=== PATIENT | male | born 1965 | race Caucasian/White ===

== ENCOUNTER 2018-11-26 09:47 | Day surgery (SDC) | payer MEDICARE, OTHER ==
[~2018-11-26] VITALS: Ht 177.8 cm; Wt 94.1 kg
[~2018-11-26 09:47] MED LIST: CLON2 PO; HYDACE5 PO; IBUP800 PO; LAMO100 PO; OLAN10 PO; OMEP20ER PO; RXHYDACE PO; VIIBRYD40 MG PO
== END 2018-11-26 12:20 | disposition home or self-care (01) ==
LOC: ORSCSDS 09:47
PROVIDERS: Internal Medicine Gastroenterology
PROC: 0DJ08ZZ Inspection of Upper Intestinal Tract, Via Natural or Artificial Opening Endoscopic (ICD-10-PCS; principal; 2018-11-26 11:30)
PROC: 0DBL8ZX Excision of Transverse Colon, Via Natural or Artificial Opening Endoscopic, Diagnostic (ICD-10-PCS; principal; 2018-11-26 11:30)
PROC: 0DBK8ZX Excision of Ascending Colon, Via Natural or Artificial Opening Endoscopic, Diagnostic (ICD-10-PCS; principal; 2018-11-26 11:30)
DX: Z12.11 Encounter for screening for malignant neoplasm of colon (principal); Z86.010 Personal history of colon polyps; D12.2 Benign neoplasm of ascending colon; D12.3 Benign neoplasm of transverse colon; K57.30 Diverticulosis of large intestine without perforation or abscess without bleeding; K64.8 Other hemorrhoids; Z80.0 Family history of malignant neoplasm of digestive organs; K21.0 Gastro-esophageal reflux disease with esophagitis; I10 Essential (primary) hypertension; F31.9 Bipolar disorder, unspecified; K44.9 Diaphragmatic hernia without obstruction or gangrene; Z86.19 Personal history of other infectious and parasitic diseases; F17.210 Nicotine dependence, cigarettes, uncomplicated; E66.9 Obesity, unspecified; Z68.31 Body mass index [BMI] 31.0-31.9, adult; Z79.899 Other long term (current) drug therapy
CPT/HCPCS: 88305; J7120

== ENCOUNTER 2022-02-06 02:18 | Emergency (ER) | payer OTHER ==
[~2022-02-06] VITALS: Ht 177.8 cm; Wt 95.2 kg
[2022-02-06] MEDS ORDERED: TRAM50 PO (03:30)
== END 2022-02-06 04:30 | disposition home or self-care (01) ==
LOC: ER 02:18
DX: K40.90 Unilateral inguinal hernia, without obstruction or gangrene, not specified as recurrent (principal); Z79.899 Other long term (current) drug therapy
CPT/HCPCS: 73502; 96372; 99283-25; A9270; J1885

== ENCOUNTER 2024-06-10 03:07 | Day surgery (SDC) | payer OTHER ==
[~2024-06-10 03:07] MED LIST changes: +ALBU90OI INH; +CefTRIAXone Sodium 2,000 MG in NS 100 ML IV SCH; +ESCI10 PO; +Lamictal200 MG PO; +MIRALAX17 GM PO; -OLAN10 PO; +OLAN20 MM; +OLANZAPINE20 M2 PO; +Percocet 5-3251 EACH PO; +TESTOSTERONE75 G1 TOP; +TRAM50 PO
[2024-06-10] MEDS ORDERED: NS IV SCH (06:00)
[2024-06-10] MEDS ORDERED: DAPTOMYCIN IV SCH (06:00)
[2024-06-10 07:47] VITALS: BP 166/95
[2024-06-10] MEDS ORDERED: TRAM50 PO (08:27)
[2024-06-10 08:53] LABS: BASOPHILS ABSOLUTE AUTO 0.04 K/mm3 (0.00-0.23); BASOPHILS PERCENT AUTO 1 % (0-2); EOSINOPHILS ABSOLUTE AUTO 0.12 K/mm3 (0.00-0.68); EOSINOPHILS PERCENT AUTO 2 % (0-6); Hemoglobin 8.7 g/dL (13.5-17.5); IMMATURE GRAN ABSOLUTE AUTO 0.04 K/mm3 (0.00-0.10); IMMATURE GRAN PERCENT AUTO 1 % (0-1); LYMPHOCYTES ABSOLUTE AUTO 1.94 K/mm3 (0.84-5.20); LYMPHOCYTES PERCENT AUTO 25 % (21-46); MONOCYTES ABSOLUTE AUTO 0.54 K/mm3 (0.16-1.47); MONOCYTES PERCENT AUTO 7 % (4-13); Mean Corpuscular HGB 24.2 pg (26.0-34.0); Mean Corpuscular Volume 81 fL (80-100); Mean Platelet Volume 9.3 fL (9.1-12.4); NEUTROPHILS PERCENT AUTO 66 % (41-73); Platelet Count 481 K/mm3 (150-400); RDW Coefficient Variation 22.2 % (11.7-14.2); White Blood Cell Count 7.88 K/mm3 (4.00-11.30)
[2024-06-10 09:23] LABS: Albumin, Blood 3.1 g/dL (3.4-5.0); Albumin/Globulin Ratio 0.7 (0.8-1.8); Bilirubin, Total 0.3 mg/dL (0.1-1.0); Bun/Creatinine Ratio 13.6 (12.0-20.0); C-REACTIVE PROTEIN, EXT RANGE 2.45 mg/dL (0.000-0.300); Calcium, Blood 8.7 mg/dL (8.5-10.1); Creatinine, Blood 0.73 mg/dL (0.60-1.20); Globulin, Blood 4.3 g/dL (2.2-4.0); Potassium, Blood 3.5 mmol/L (3.5-5.5); Total Protein, Blood 7.4 g/dL (6.4-8.2)
--- NOTE | 2024-06-10 10:18 | NUR ---
LABS SENT TO DR CALVIN
== END 2024-06-10 08:15 | disposition home or self-care (01) ==
LOC: ATC 03:07
PROVIDERS: Internal Medicine Infectious Disease
DX: M01.X Direct infection of joint in infectious and parasitic diseases classified elsewhere (principal)
CPT/HCPCS: 80053; 82550; 85025; 86140; 96365; 96368; J0696; J0878

== ENCOUNTER 2024-06-11 02:16 | Day surgery (SDC) | payer OTHER ==
[2024-06-11] MEDS ORDERED: DAPTOMYCIN IV SCH (06:00)
[2024-06-11] MEDS ORDERED: NS IV SCH (06:00)
[2024-06-11 10:33] VITALS: BP 157/87
[2024-06-12] MEDS ORDERED: CefTRIAXone Sodium 2,000 MG in NS 100 ML IV SCH (01:00)
[2024-06-12] MEDS ORDERED: NS IV SCH (06:00)
[2024-06-12] MEDS ORDERED: DAPTOMYCIN IV SCH (06:00)
[2024-06-12] MEDS ORDERED: CEFTRIAXONE2 G1 IV (11:35)
[2024-06-12] MEDS ORDERED: CUBICIN RF500 M1 IV (11:35)
== END 2024-06-11 10:56 | disposition home or self-care (01) ==
LOC: ATC 02:16
DX: M01.X Direct infection of joint in infectious and parasitic diseases classified elsewhere (principal)
CPT/HCPCS: 96365; 96368; J0696; J0878

== ENCOUNTER 2024-06-12 11:01 | Day surgery (SDC) | payer OTHER ==
[2024-06-12 10:45] VITALS: BP 154/100
[~2024-06-12 11:01] MED LIST changes: +DAPTOMYCIN IV SCH; +NS IV SCH
[2024-06-12] MEDS ORDERED: CEFTRIAXONE2 G1 IV (11:35)
[2024-06-12] MEDS ORDERED: CUBICIN RF500 M1 IV (11:35)
== END 2024-06-12 11:10 | disposition home or self-care (01) ==
LOC: ATC 11:01
DX: M01.X Direct infection of joint in infectious and parasitic diseases classified elsewhere (principal)
CPT/HCPCS: 96365; 96368; J0696; J0878

== ENCOUNTER 2024-06-13 01:06 | Day surgery (SDC) | payer OTHER ==
[~2024-06-13 01:06] MED LIST changes: +CEFTRIAXONE2 G1 IV; +CUBICIN RF500 M1 IV; -CefTRIAXone Sodium 2,000 MG in NS 100 ML IV SCH; -DAPTOMYCIN IV SCH; -NS IV SCH
[2024-06-13] MEDS ORDERED: NS IV SCH (06:00)
[2024-06-13] MEDS ORDERED: CefTRIAXone Sodium 2,000 MG in NS 100 ML IV SCH (06:00)
[2024-06-13] MEDS ORDERED: DAPTOMYCIN IV SCH (06:00)
[2024-06-13 10:30] VITALS: BP 126/76
== END 2024-06-13 10:56 | disposition home or self-care (01) ==
LOC: ATC 01:06
DX: M01.X Direct infection of joint in infectious and parasitic diseases classified elsewhere (principal)
CPT/HCPCS: 96365; 96368; J0696; J0878

== ENCOUNTER 2024-06-14 01:54 | Day surgery (SDC) | payer OTHER ==
[2024-06-14] MEDS ORDERED: CefTRIAXone Sodium 2,000 MG in NS 100 ML IV SCH (06:00)
[2024-06-14] MEDS ORDERED: DAPTOMYCIN IV SCH (06:00)
[2024-06-14] MEDS ORDERED: NS IV SCH (06:00)
[2024-06-14 10:11] VITALS: BP 109/88
== END 2024-06-14 10:42 | disposition home or self-care (01) ==
LOC: ATC 01:54
DX: M01.X Direct infection of joint in infectious and parasitic diseases classified elsewhere (principal)
CPT/HCPCS: 96365; 96368; J0696; J0878

== ENCOUNTER 2024-06-15 00:44 | Day surgery (SDC) | payer OTHER ==
[2024-06-15] MEDS ORDERED: DAPTOMYCIN IV SCH (06:00)
[2024-06-15] MEDS ORDERED: CefTRIAXone Sodium 2,000 MG in NS 100 ML IV SCH (06:00)
[2024-06-15] MEDS ORDERED: NS IV SCH (06:00)
[2024-06-15 09:56] VITALS: BP 141/78
== END 2024-06-15 10:25 | disposition home or self-care (01) ==
LOC: ATC 00:44
DX: M01.X Direct infection of joint in infectious and parasitic diseases classified elsewhere (principal)
CPT/HCPCS: 96365; 96368; J0696; J0878

== ENCOUNTER 2024-06-16 02:37 | Day surgery (SDC) | payer OTHER ==
[~2024-06-16 02:37] MED LIST changes: +CefTRIAXone Sodium 2,000 MG in NS 100 ML IV SCH
[2024-06-16] MEDS ORDERED: DAPTOMYCIN IV SCH (06:00)
[2024-06-16] MEDS ORDERED: NS IV SCH (06:00)
[2024-06-16 10:26] VITALS: BP 158/79
== END 2024-06-16 10:50 | disposition home or self-care (01) ==
LOC: ATC 02:37
DX: M01.X Direct infection of joint in infectious and parasitic diseases classified elsewhere (principal); Z87.891 Personal history of nicotine dependence
CPT/HCPCS: 96365; 96368; J0696; J0878

== ENCOUNTER 2024-06-17 01:20 | Day surgery (SDC) | payer OTHER ==
[~2024-06-17 01:20] MED LIST changes: -CefTRIAXone Sodium 2,000 MG in NS 100 ML IV SCH
[2024-06-17] MEDS ORDERED: CefTRIAXone Sodium 2,000 MG in NS 100 ML IV SCH (06:00)
[2024-06-17] MEDS ORDERED: DAPTOMYCIN IV SCH (06:00)
[2024-06-17] MEDS ORDERED: NS IV SCH (06:00)
[2024-06-17 10:42] LABS: BASOPHILS ABSOLUTE AUTO 0.05 K/mm3 (0.00-0.23); BASOPHILS PERCENT AUTO 1 % (0-2); EOSINOPHILS ABSOLUTE AUTO 0.09 K/mm3 (0.00-0.68); EOSINOPHILS PERCENT AUTO 2 % (0-6); Hematocrit 28.7 % (37.0-53.0); Hemoglobin 8.7 g/dL (13.5-17.5); IMMATURE GRAN ABSOLUTE AUTO 0.01 K/mm3 (0.00-0.10); IMMATURE GRAN PERCENT AUTO 0 % (0-1); LYMPHOCYTES ABSOLUTE AUTO 1.53 K/mm3 (0.84-5.20); LYMPHOCYTES PERCENT AUTO 29 % (21-46); MONOCYTES ABSOLUTE AUTO 0.65 K/mm3 (0.16-1.47); MONOCYTES PERCENT AUTO 13 % (4-13); Mean Corpuscular HGB 24.4 pg (26.0-34.0); Mean Corpuscular HGB Conc 30.3 g/dL (31.5-36.5); Mean Corpuscular Volume 81 fL (80-100); Mean Platelet Volume 8.5 fL (9.1-12.4); NEUTROPHILS ABSOLUTE AUTO 2.89 K/mm3 (1.96-9.15); NEUTROPHILS PERCENT AUTO 55 % (41-73); Platelet Count 342 K/mm3 (150-400); RDW Coefficient Variation 20.7 % (11.7-14.2); RDW Standard Deviation 60.6 fL (35.1-46.3); Red Blood Cell Count 3.56 M/mm3 (4.30-5.90); White Blood Cell Count 5.22 K/mm3 (4.00-11.30)
[2024-06-17 10:57] LABS: C-REACTIVE PROTEIN, EXT RANGE 1.08 mg/dL (0.000-0.300)
[2024-06-17 10:58] LABS: Albumin, Blood 3.1 g/dL (3.4-5.0); Albumin/Globulin Ratio 0.7 (0.8-1.8); Bilirubin, Total 0.2 mg/dL (0.1-1.0); Bun/Creatinine Ratio 13.2 (12.0-20.0); Calcium, Blood 8.4 mg/dL (8.5-10.1); Creatinine, Blood 0.76 mg/dL (0.60-1.20); Globulin, Blood 4.3 g/dL (2.2-4.0); Potassium, Blood 3.9 mmol/L (3.5-5.5); Total Protein, Blood 7.4 g/dL (6.4-8.2)
== END 2024-06-17 11:00 | disposition home or self-care (01) ==
LOC: ATC 01:20
PROVIDERS: Internal Medicine Infectious Disease
DX: M01.X Direct infection of joint in infectious and parasitic diseases classified elsewhere (principal)
CPT/HCPCS: 80053; 82550; 85025; 86140; 96365; 96368; J0696; J0878

== ENCOUNTER 2024-06-18 02:10 | Day surgery (SDC) | payer OTHER ==
[2024-06-18] MEDS ORDERED: NS IV SCH (06:00)
[2024-06-18] MEDS ORDERED: DAPTOMYCIN IV SCH (06:00)
[2024-06-18] MEDS ORDERED: CefTRIAXone Sodium 2,000 MG in NS 100 ML IV SCH (06:00)
[2024-06-18 10:43] VITALS: BP 159/79
== END 2024-06-18 11:17 | disposition home or self-care (01) ==
LOC: ATC 02:10
DX: M00.9 Pyogenic arthritis, unspecified (principal); J44.9 Chronic obstructive pulmonary disease, unspecified; Z79.899 Other long term (current) drug therapy
CPT/HCPCS: 96365; 96368; J0696; J0878

== ENCOUNTER 2024-06-20 00:38 | Day surgery (SDC) | payer OTHER ==
[2024-06-20] MEDS ORDERED: DAPTOMYCIN IV SCH (06:00)
[2024-06-20] MEDS ORDERED: CefTRIAXone Sodium 2,000 MG in NS 100 ML IV SCH (06:00)
[2024-06-20] MEDS ORDERED: NS IV SCH (06:00)
== END 2024-06-20 10:37 | disposition home or self-care (01) ==
LOC: ATC 00:38
DX: M00.9 Pyogenic arthritis, unspecified (principal); J44.9 Chronic obstructive pulmonary disease, unspecified; Z79.899 Other long term (current) drug therapy
CPT/HCPCS: 96365; 96368; J0696; J0878

== ENCOUNTER 2024-06-21 01:24 | Day surgery (SDC) | payer OTHER ==
[2024-06-21] MEDS ORDERED: NS IV SCH (06:00)
[2024-06-21] MEDS ORDERED: CefTRIAXone Sodium 2,000 MG in NS 100 ML IV SCH (06:00)
[2024-06-21] MEDS ORDERED: DAPTOMYCIN IV SCH (06:00)
[2024-06-21 09:40] VITALS: BP 138/98
== END 2024-06-21 10:05 | disposition home or self-care (01) ==
LOC: ATC 01:24
DX: M01.X Direct infection of joint in infectious and parasitic diseases classified elsewhere (principal)
CPT/HCPCS: 96365; 96368; J0696; J0878

== ENCOUNTER 2024-06-22 03:46 | Day surgery (SDC) | payer OTHER ==
[~2024-06-22 03:46] MED LIST changes: +CefTRIAXone Sodium 2,000 MG in NS 100 ML IV SCH
[2024-06-22] MEDS ORDERED: NS IV SCH (06:00)
[2024-06-22] MEDS ORDERED: DAPTOMYCIN IV SCH (06:00)
[2024-06-22 10:10] VITALS: BP 159/88
== END 2024-06-22 10:31 | disposition home or self-care (01) ==
LOC: ATC 03:46
DX: M00.9 Pyogenic arthritis, unspecified (principal); J44.9 Chronic obstructive pulmonary disease, unspecified; Z87.891 Personal history of nicotine dependence; Z79.899 Other long term (current) drug therapy
CPT/HCPCS: 96365; 96368; J0696; J0878

== ENCOUNTER 2024-06-23 01:04 | Day surgery (SDC) | payer OTHER ==
[2024-06-23] MEDS ORDERED: NS IV SCH (06:00)
[2024-06-23] MEDS ORDERED: DAPTOMYCIN IV SCH (06:00)
[2024-06-23 10:06] VITALS: BP 148/77
== END 2024-06-23 10:33 | disposition home or self-care (01) ==
LOC: ATC 01:04
DX: M00.9 Pyogenic arthritis, unspecified (principal); Z87.891 Personal history of nicotine dependence; Z79.899 Other long term (current) drug therapy
CPT/HCPCS: 96365; 96368; J0696; J0878

== ENCOUNTER 2024-06-25 02:30 | Day surgery (SDC) | payer OTHER ==
[~2024-06-25 02:30] MED LIST changes: -CefTRIAXone Sodium 2,000 MG in NS 100 ML IV SCH
[2024-06-25] MEDS ORDERED: NS IV SCH (06:00)
[2024-06-25] MEDS ORDERED: DAPTOMYCIN IV SCH (06:00)
[2024-06-25] MEDS ORDERED: CefTRIAXone Sodium 2,000 MG in NS 100 ML IV SCH (06:00)
[2024-06-25 10:37] VITALS: BP 143/94
== END 2024-06-25 11:07 | disposition home or self-care (01) ==
LOC: ATC 02:30
DX: M00.9 Pyogenic arthritis, unspecified (principal); J44.9 Chronic obstructive pulmonary disease, unspecified; Z79.899 Other long term (current) drug therapy
CPT/HCPCS: J0696; J0878

== ENCOUNTER 2024-07-03 10:21 | Day surgery (SDC) | payer OTHER ==
[~2024-07-03 10:21] MED LIST changes: +CefTRIAXone Sodium 2,000 MG in NS 100 ML IV SCH; +DAPTOMYCIN IV SCH; +NS IV SCH
[2024-07-03 10:23] VITALS: BP 156/75
== END 2024-07-03 10:48 | disposition home or self-care (01) ==
LOC: ATC 10:21
DX: M00.9 Pyogenic arthritis, unspecified (principal); J44.9 Chronic obstructive pulmonary disease, unspecified; Z87.891 Personal history of nicotine dependence; Z79.899 Other long term (current) drug therapy
CPT/HCPCS: 96365; 96368; J0696; J0878

== ENCOUNTER 2024-07-04 03:10 | Day surgery (SDC) | payer OTHER ==
[~2024-07-04 03:10] MED LIST changes: -CefTRIAXone Sodium 2,000 MG in NS 100 ML IV SCH; -DAPTOMYCIN IV SCH; -NS IV SCH
[2024-07-04] MEDS ORDERED: DAPTOMYCIN IV SCH (06:00)
[2024-07-04] MEDS ORDERED: CefTRIAXone Sodium 2,000 MG in NS 100 ML IV SCH (06:00)
[2024-07-04] MEDS ORDERED: NS IV SCH (06:00)
[2024-07-04 10:12] VITALS: BP 156/75
== END 2024-07-04 10:34 | disposition home or self-care (01) ==
LOC: ATC 03:10
DX: M01.X Direct infection of joint in infectious and parasitic diseases classified elsewhere (principal); J44.9 Chronic obstructive pulmonary disease, unspecified; Z87.891 Personal history of nicotine dependence
CPT/HCPCS: 96365; 96368; J0696; J0878

== ENCOUNTER 2024-07-05 03:09 | Day surgery (SDC) | payer OTHER ==
[~2024-07-05 03:09] MED LIST changes: +CefTRIAXone Sodium 2,000 MG in NS 100 ML IV SCH
[2024-07-05] MEDS ORDERED: NS IV SCH (06:00)
[2024-07-05] MEDS ORDERED: DAPTOMYCIN IV SCH (06:00)
[2024-07-05 10:27] VITALS: BP 128/97
== END 2024-07-05 11:05 | disposition home or self-care (01) ==
LOC: ATC 03:09
DX: M01.X Direct infection of joint in infectious and parasitic diseases classified elsewhere (principal); J44.9 Chronic obstructive pulmonary disease, unspecified; Z87.891 Personal history of nicotine dependence
CPT/HCPCS: 96365; 96368; J0696; J0878

== ENCOUNTER 2024-07-06 01:29 | Day surgery (SDC) | payer OTHER ==
[2024-07-06] MEDS ORDERED: DAPTOMYCIN IV SCH (06:00)
[2024-07-06] MEDS ORDERED: NS IV SCH (06:00)
[2024-07-06 10:26] VITALS: BP 140/77
== END 2024-07-06 10:46 | disposition home or self-care (01) ==
LOC: ATC 01:29
DX: M01.X Direct infection of joint in infectious and parasitic diseases classified elsewhere (principal); J44.9 Chronic obstructive pulmonary disease, unspecified
CPT/HCPCS: 96365; 96368; J0696; J0878

== ENCOUNTER 2024-07-07 01:53 | Day surgery (SDC) | payer OTHER ==
[2024-07-07 10:50] VITALS: BP 139/82
[2024-07-08] MEDS ORDERED: NS IV SCH (06:00)
[2024-07-08] MEDS ORDERED: DAPTOMYCIN IV SCH (06:00)
== END 2024-07-07 10:55 | disposition home or self-care (01) ==
LOC: ATC 01:53
DX: M00.9 Pyogenic arthritis, unspecified (principal); J44.9 Chronic obstructive pulmonary disease, unspecified; Z87.891 Personal history of nicotine dependence; Z79.899 Other long term (current) drug therapy
CPT/HCPCS: 96365; 96368; J0696; J0878

== ENCOUNTER 2024-07-08 04:25 | Day surgery (SDC) | payer OTHER ==
[2024-07-08] MEDS ORDERED: NS IV SCH (06:00)
[2024-07-08] MEDS ORDERED: DAPTOMYCIN IV SCH (06:00)
[2024-07-08 10:45] VITALS: BP 131/61
[2024-07-08 11:11] LABS: BASOPHILS ABSOLUTE AUTO 0.03 K/mm3 (0.00-0.23); BASOPHILS PERCENT AUTO 1 % (0-2); EOSINOPHILS ABSOLUTE AUTO 0.31 K/mm3 (0.00-0.68); EOSINOPHILS PERCENT AUTO 7 % (0-6); Hematocrit 35.2 % (37.0-53.0); Hemoglobin 10.3 g/dL (13.5-17.5); IMMATURE GRAN ABSOLUTE AUTO 0.02 K/mm3 (0.00-0.10); IMMATURE GRAN PERCENT AUTO 0 % (0-1); LYMPHOCYTES ABSOLUTE AUTO 1.29 K/mm3 (0.84-5.20); LYMPHOCYTES PERCENT AUTO 27 % (21-46); MONOCYTES ABSOLUTE AUTO 0.48 K/mm3 (0.16-1.47); MONOCYTES PERCENT AUTO 10 % (4-13); Mean Corpuscular HGB 23.1 pg (26.0-34.0); Mean Corpuscular HGB Conc 29.3 g/dL (31.5-36.5); Mean Corpuscular Volume 79 fL (80-100); Mean Platelet Volume 8.7 fL (9.1-12.4); NEUTROPHILS ABSOLUTE AUTO 2.63 K/mm3 (1.96-9.15); NEUTROPHILS PERCENT AUTO 55 % (41-73); Platelet Count 491 K/mm3 (150-400); RDW Coefficient Variation 17.9 % (11.7-14.2); RDW Standard Deviation 51.8 fL (35.1-46.3); Red Blood Cell Count 4.45 M/mm3 (4.30-5.90); White Blood Cell Count 4.76 K/mm3 (4.00-11.30)
[2024-07-08 11:31] LABS: C-REACTIVE PROTEIN, EXT RANGE 1.97 mg/dL (0.000-0.300)
[2024-07-08 11:33] LABS: Albumin, Blood 3.2 g/dL (3.4-5.0); Albumin/Globulin Ratio 0.7 (0.8-1.8); Bilirubin, Total 0.2 mg/dL (0.1-1.0); Creatinine, Blood 0.85 mg/dL (0.60-1.20); Globulin, Blood 4.8 g/dL (2.2-4.0); Potassium, Blood 3.8 mmol/L (3.5-5.5)
== END 2024-07-08 11:09 | disposition home or self-care (01) ==
LOC: ATC 04:25
PROVIDERS: Internal Medicine Infectious Disease
DX: T84.7XXA Infection and inflammatory reaction due to other internal orthopedic prosthetic devices, implants and grafts, initial encounter (principal); J44.9 Chronic obstructive pulmonary disease, unspecified; Z87.891 Personal history of nicotine dependence; Z79.899 Other long term (current) drug therapy
CPT/HCPCS: 80053; 82550; 85025; 86140; 96365; 96368; J0696; J0878

== ENCOUNTER 2024-07-09 01:54 | Day surgery (SDC) | payer OTHER ==
[2024-07-09] MEDS ORDERED: NS IV SCH (06:00)
[2024-07-09] MEDS ORDERED: DAPTOMYCIN IV SCH (06:00)
[2024-07-09 10:27] VITALS: BP 132/88
== END 2024-07-09 10:54 | disposition home or self-care (01) ==
LOC: ATC 01:54
DX: M01.X Direct infection of joint in infectious and parasitic diseases classified elsewhere (principal); Z87.891 Personal history of nicotine dependence
CPT/HCPCS: 96365; 96368; J0696; J0878

== ENCOUNTER 2024-07-10 10:17 | Day surgery (SDC) | payer OTHER ==
[~2024-07-10 10:17] MED LIST changes: +DAPTOMYCIN IV SCH; +NS IV SCH
[2024-07-10 10:26] VITALS: BP 146/82
== END 2024-07-10 10:47 | disposition home or self-care (01) ==
LOC: ATC 10:17
DX: T84.69XA Infection and inflammatory reaction due to internal fixation device of other site, initial encounter (principal); J44.9 Chronic obstructive pulmonary disease, unspecified; Y79.2 Prosthetic and other implants, materials and accessory orthopedic devices associated with adverse incidents
CPT/HCPCS: 96365; 96368; J0696; J0878

== ENCOUNTER 2024-07-11 04:15 | Day surgery (SDC) | payer OTHER ==
[~2024-07-11 04:15] MED LIST changes: -DAPTOMYCIN IV SCH; -NS IV SCH
[2024-07-11] MEDS ORDERED: NS IV SCH (06:00)
[2024-07-11] MEDS ORDERED: DAPTOMYCIN IV SCH (06:00)
[2024-07-11 10:00] VITALS: BP 115/76
== END 2024-07-11 10:38 | disposition home or self-care (01) ==
LOC: ATC 04:15
DX: T84.7XXA Infection and inflammatory reaction due to other internal orthopedic prosthetic devices, implants and grafts, initial encounter (principal); J44.9 Chronic obstructive pulmonary disease, unspecified; Z87.891 Personal history of nicotine dependence; Z79.899 Other long term (current) drug therapy
CPT/HCPCS: 96365; 96368; J0696; J0878

== ENCOUNTER 2024-07-14 02:46 | Day surgery (SDC) | payer OTHER ==
[2024-07-14] MEDS ORDERED: NS IV SCH (06:00)
[2024-07-14] MEDS ORDERED: DAPTOMYCIN IV SCH (06:00)
[2024-07-14 10:00] VITALS: BP 144/62
== END 2024-07-14 10:19 | disposition home or self-care (01) ==
LOC: ATC 02:46
DX: M00.9 Pyogenic arthritis, unspecified (principal); J44.9 Chronic obstructive pulmonary disease, unspecified
CPT/HCPCS: 96365; 96368; J0696; J0878

== ENCOUNTER 2024-07-15 01:20 | Day surgery (SDC) | payer OTHER ==
[2024-07-15] MEDS ORDERED: DAPTOMYCIN IV SCH (06:00)
[2024-07-15] MEDS ORDERED: NS IV SCH (06:00)
[2024-07-15 10:34] VITALS: BP 140/83
[2024-07-15 11:26] LABS: BASOPHILS ABSOLUTE AUTO 0.04 K/mm3 (0.00-0.23); BASOPHILS PERCENT AUTO 1 % (0-2); EOSINOPHILS ABSOLUTE AUTO 0.04 K/mm3 (0.00-0.68); EOSINOPHILS PERCENT AUTO 1 % (0-6); Hematocrit 35.8 % (37.0-53.0); Hemoglobin 10.5 g/dL (13.5-17.5); IMMATURE GRAN ABSOLUTE AUTO 0.01 K/mm3 (0.00-0.10); IMMATURE GRAN PERCENT AUTO 0 % (0-1); LYMPHOCYTES PERCENT AUTO 28 % (21-46); MONOCYTES ABSOLUTE AUTO 0.72 K/mm3 (0.16-1.47); MONOCYTES PERCENT AUTO 13 % (4-13); Mean Corpuscular HGB 22.9 pg (26.0-34.0); Mean Corpuscular HGB Conc 29.3 g/dL (31.5-36.5); Mean Corpuscular Volume 78 fL (80-100); Mean Platelet Volume 8.9 fL (9.1-12.4); NEUTROPHILS ABSOLUTE AUTO 3.29 K/mm3 (1.96-9.15); NEUTROPHILS PERCENT AUTO 58 % (41-73); Platelet Count 501 K/mm3 (150-400); RDW Coefficient Variation 17.8 % (11.7-14.2); Red Blood Cell Count 4.59 M/mm3 (4.30-5.90)
[2024-07-15 11:50] LABS: Albumin, Blood 3.8 g/dL (3.4-5.0); Albumin/Globulin Ratio 0.8 (0.8-1.8); Bilirubin, Total 0.2 mg/dL (0.1-1.0); Bun/Creatinine Ratio 13.4 (12.0-20.0); C-REACTIVE PROTEIN, EXT RANGE 0.656 mg/dL (0.000-0.300); Calcium, Blood 9.5 mg/dL (8.5-10.1); Creatinine, Blood 0.82 mg/dL (0.60-1.20); Globulin, Blood 4.6 g/dL (2.2-4.0); Potassium, Blood 3.6 mmol/L (3.5-5.5); Total Protein, Blood 8.4 g/dL (6.4-8.2)
== END 2024-07-15 10:42 | disposition home or self-care (01) ==
LOC: ATC 01:20
PROVIDERS: Internal Medicine Infectious Disease
DX: M01.X Direct infection of joint in infectious and parasitic diseases classified elsewhere (principal)
CPT/HCPCS: 80053; 82550; 85025; 86140; 96365; 96368; J0696; J0878

== ENCOUNTER 2024-07-16 02:01 | Day surgery (SDC) | payer OTHER ==
[2024-07-16] MEDS ORDERED: DAPTOMYCIN IV SCH (06:00)
[2024-07-16] MEDS ORDERED: NS IV SCH (06:00)
[2024-07-16 10:20] VITALS: BP 125/72
== END 2024-07-16 10:55 | disposition home or self-care (01) ==
LOC: ATC 02:01
DX: M01.X Direct infection of joint in infectious and parasitic diseases classified elsewhere (principal); J44.9 Chronic obstructive pulmonary disease, unspecified; Z79.899 Other long term (current) drug therapy
CPT/HCPCS: 96365; 96368; J0696; J0878

== ENCOUNTER 2024-07-17 10:28 | Day surgery (SDC) | payer OTHER ==
[~2024-07-17 10:28] MED LIST changes: +DAPTOMYCIN IV SCH; +NS IV SCH
[2024-07-17 10:40] VITALS: BP 143/90
== END 2024-07-17 11:04 | disposition home or self-care (01) ==
LOC: ATC 10:28
DX: M01.X Direct infection of joint in infectious and parasitic diseases classified elsewhere (principal); J44.9 Chronic obstructive pulmonary disease, unspecified; Z79.899 Other long term (current) drug therapy
CPT/HCPCS: 96365; 96368; J0696; J0878

== ENCOUNTER 2024-07-18 04:06 | Day surgery (SDC) | payer OTHER ==
[~2024-07-18 04:06] MED LIST changes: -CefTRIAXone Sodium 2,000 MG in NS 100 ML IV SCH; -DAPTOMYCIN IV SCH; -NS IV SCH
[2024-07-18] MEDS ORDERED: NS IV SCH (06:00)
[2024-07-18] MEDS ORDERED: DAPTOMYCIN IV SCH (06:00)
[2024-07-18] MEDS ORDERED: CefTRIAXone Sodium 2,000 MG in NS 100 ML IV SCH (06:00)
[2024-07-18 10:53] VITALS: BP 136/77
== END 2024-07-18 11:30 | disposition home or self-care (01) ==
LOC: ATC 04:06
DX: T84.610A Infection and inflammatory reaction due to internal fixation device of right humerus, initial encounter (principal); J44.9 Chronic obstructive pulmonary disease, unspecified; Z87.891 Personal history of nicotine dependence
CPT/HCPCS: 96365; 96368; J0696; J0878

== ENCOUNTER 2024-10-07 06:08 | Day surgery (SDC) | payer OTHER ==
[~2024-10-07 06:08] MED LIST changes: +DAPTOmycin 1,000 MG in NS 50 ML IV SCH
[2024-10-07 12:55] VITALS: BP 130/90
== END 2024-10-07 13:21 | disposition home or self-care (01) ==
LOC: ATC 06:08
DX: T81.40XA Infection following a procedure, unspecified, initial encounter (principal); M00.9 Pyogenic arthritis, unspecified; J44.9 Chronic obstructive pulmonary disease, unspecified; Z87.891 Personal history of nicotine dependence; Z79.899 Other long term (current) drug therapy
CPT/HCPCS: 96365; J0878

== ENCOUNTER 2024-10-08 01:16 | Day surgery (SDC) | payer OTHER ==
[~2024-10-08 01:16] MED LIST changes: -DAPTOmycin 1,000 MG in NS 50 ML IV SCH
[2024-10-08] MEDS ORDERED: DAPTOmycin 1,000 MG in NS 50 ML IV SCH (06:00)
[2024-10-08 13:26] VITALS: BP 147/82
== END 2024-10-08 13:45 | disposition home or self-care (01) ==
LOC: ATC 01:16
DX: T81.40XA Infection following a procedure, unspecified, initial encounter (principal); M00.9 Pyogenic arthritis, unspecified; J44.9 Chronic obstructive pulmonary disease, unspecified; Z79.899 Other long term (current) drug therapy
CPT/HCPCS: 96365; J0878

== ENCOUNTER 2024-10-09 12:54 | Day surgery (SDC) | payer OTHER ==
[~2024-10-09 12:54] MED LIST changes: +DAPTOMYCIN IV SCH; +NS IV SCH
[2024-10-09 13:34] VITALS: BP 131/78
== END 2024-10-09 13:53 | disposition home or self-care (01) ==
LOC: ATC 12:54
DX: M00.821 Arthritis due to other bacteria, right elbow (principal)
CPT/HCPCS: 96365; J0878

== ENCOUNTER 2024-10-10 02:56 | Day surgery (SDC) | payer OTHER ==
[~2024-10-10 02:56] MED LIST changes: -DAPTOMYCIN IV SCH; -NS IV SCH
[2024-10-10] MEDS ORDERED: NS IV SCH (06:00)
[2024-10-10] MEDS ORDERED: DAPTOMYCIN IV SCH (06:00)
[2024-10-10 13:05] VITALS: BP 104/67
== END 2024-10-10 13:29 | disposition home or self-care (01) ==
LOC: ATC 02:56
DX: T81.40XA Infection following a procedure, unspecified, initial encounter (principal); M00.9 Pyogenic arthritis, unspecified; J44.9 Chronic obstructive pulmonary disease, unspecified; Z87.891 Personal history of nicotine dependence; Z79.899 Other long term (current) drug therapy
CPT/HCPCS: 96365; J0878

== ENCOUNTER 2024-10-11 03:49 | Day surgery (SDC) | payer OTHER ==
[2024-10-11] MEDS ORDERED: DAPTOmycin 1,000 MG in NS 50 ML IV SCH (06:00)
[2024-10-11 13:35] VITALS: BP 127/75
[2024-10-11 13:56] LABS: BASOPHILS ABSOLUTE AUTO 0.04 K/mm3 (0.00-0.23); BASOPHILS PERCENT AUTO 1 % (0-2); EOSINOPHILS ABSOLUTE AUTO 0.16 K/mm3 (0.00-0.68); EOSINOPHILS PERCENT AUTO 3 % (0-6); Hematocrit 28.2 % (37.0-53.0); Hemoglobin 8.5 g/dL (13.5-17.5); IMMATURE GRAN ABSOLUTE AUTO 0.06 K/mm3 (0.00-0.10); IMMATURE GRAN PERCENT AUTO 1 % (0-1); LYMPHOCYTES ABSOLUTE AUTO 1.69 K/mm3 (0.84-5.20); LYMPHOCYTES PERCENT AUTO 29 % (21-46); MONOCYTES ABSOLUTE AUTO 0.52 K/mm3 (0.16-1.47); MONOCYTES PERCENT AUTO 9 % (4-13); Mean Corpuscular HGB 23.4 pg (26.0-34.0); Mean Corpuscular HGB Conc 30.1 g/dL (31.5-36.5); Mean Corpuscular Volume 78 fL (80-100); NEUTROPHILS ABSOLUTE AUTO 3.35 K/mm3 (1.96-9.15); NEUTROPHILS PERCENT AUTO 58 % (41-73); Platelet Count 438 K/mm3 (150-400); RDW Coefficient Variation 18.7 % (11.7-14.2); RDW Standard Deviation 52.1 fL (35.1-46.3); Red Blood Cell Count 3.64 M/mm3 (4.30-5.90); White Blood Cell Count 5.82 K/mm3 (4.00-11.30)
[2024-10-11 14:19] LABS: C-REACTIVE PROTEIN, EXT RANGE 2.25 mg/dL (0.000-0.300)
[2024-10-11 14:26] LABS: Albumin, Blood 2.8 g/dL (3.4-5.0); Albumin/Globulin Ratio 0.7 (0.8-1.8); Bilirubin, Total 0.4 mg/dL (0.1-1.0); Bun/Creatinine Ratio 10.8 (12.0-20.0); Creatinine, Blood 0.93 mg/dL (0.60-1.20); Globulin, Blood 4.3 g/dL (2.2-4.0); Potassium, Blood 3.5 mmol/L (3.5-5.5); Total Protein, Blood 7.1 g/dL (6.4-8.2)
== END 2024-10-11 13:47 | disposition home or self-care (01) ==
LOC: ATC 03:49
PROVIDERS: Internal Medicine Infectious Disease
DX: M00.821 Arthritis due to other bacteria, right elbow (principal); J44.9 Chronic obstructive pulmonary disease, unspecified
CPT/HCPCS: 80053; 82550; 85025; 86140; 96365; J0878

== ENCOUNTER 2024-10-12 12:58 | Day surgery (SDC) | payer OTHER ==
[~2024-10-12 12:58] MED LIST changes: +DAPTOMYCIN IV SCH; +NS IV SCH
[2024-10-12 13:27] VITALS: BP 167/77
== END 2024-10-12 13:50 | disposition home or self-care (01) ==
LOC: ATC 12:58
DX: M00.821 Arthritis due to other bacteria, right elbow (principal); J44.9 Chronic obstructive pulmonary disease, unspecified; Z87.891 Personal history of nicotine dependence
CPT/HCPCS: 96365; J0878

== ENCOUNTER 2024-10-13 00:14 | Day surgery (SDC) | payer OTHER ==
[~2024-10-13 00:14] MED LIST changes: -DAPTOMYCIN IV SCH; -NS IV SCH
[2024-10-13] MEDS ORDERED: DAPTOMYCIN IV SCH (06:00)
[2024-10-13] MEDS ORDERED: NS IV SCH (06:00)
[2024-10-13 13:16] VITALS: BP 141/108
[2024-10-14] MEDS ORDERED: OXYC5 PO (13:22)
[2024-10-14] MEDS ORDERED: TAMS.4ER PO (13:22)
== END 2024-10-13 13:47 | disposition home or self-care (01) ==
LOC: ATC 00:14
DX: T84.610A Infection and inflammatory reaction due to internal fixation device of right humerus, initial encounter (principal); J44.9 Chronic obstructive pulmonary disease, unspecified; Z87.891 Personal history of nicotine dependence
CPT/HCPCS: 96365; J0878

== ENCOUNTER 2024-10-14 06:48 | Day surgery (SDC) | payer OTHER ==
[~2024-10-14 06:48] MED LIST changes: +DAPTOMYCIN IV SCH; +NS IV SCH
[2024-10-14 13:22] VITALS: BP 148/82
[2024-10-14] MEDS ORDERED: OXYC5 PO (13:22)
[2024-10-14] MEDS ORDERED: TAMS.4ER PO (13:22)
== END 2024-10-14 13:41 | disposition home or self-care (01) ==
LOC: ATC 06:48
DX: T84.610A Infection and inflammatory reaction due to internal fixation device of right humerus, initial encounter (principal); J44.9 Chronic obstructive pulmonary disease, unspecified; Z87.891 Personal history of nicotine dependence; Z79.899 Other long term (current) drug therapy
CPT/HCPCS: 96365; J0878

== ENCOUNTER 2024-10-15 12:50 | Day surgery (SDC) | payer OTHER ==
[~2024-10-15 12:50] MED LIST changes: +OXYC5 PO; +TAMS.4ER PO
[2024-10-15 12:55] VITALS: BP 105/92
== END 2024-10-15 13:18 | disposition home or self-care (01) ==
LOC: ATC 12:50
DX: T81.40XA Infection following a procedure, unspecified, initial encounter (principal); M00.9 Pyogenic arthritis, unspecified; J44.9 Chronic obstructive pulmonary disease, unspecified; Z87.891 Personal history of nicotine dependence; Z79.899 Other long term (current) drug therapy
CPT/HCPCS: 96365; J0878

== ENCOUNTER 2024-10-16 13:06 | Day surgery (SDC) | payer OTHER ==
[~2024-10-16 13:06] MED LIST changes: +DAPTOmycin 750 MG in NS 50 ML IV SCH
[2024-10-16 13:43] VITALS: BP 106/78
--- NOTE | 2024-10-16 14:13 | NUR ---
PT ARRIVED TO CLINIC ROOM 205 FOR ANTIBIOTICS, VSS. HOWEVER HIS R ARM HAS A VERY PUNGENT, FOUL ORDER COMING FROM DRESSING AND PT STATES THAT THE WOUND VAC QUIT WORKING AND HE PULLED OFF THE WOUND VAC HIMSELF BUT THE TUBING HE STATES IS STILL IN THE ARM, CALLED ER AND TALKED WITH MICHAEL AND SENDING PT DOWN TO ER FOR FURTHER EVALUATION BY
== END 2024-10-16 14:11 | disposition home or self-care (01) ==
LOC: ATC 13:06
DX: T81.40XA Infection following a procedure, unspecified, initial encounter (principal); M00.9 Pyogenic arthritis, unspecified; J44.9 Chronic obstructive pulmonary disease, unspecified; T81.41XA Infection following a procedure, superficial incisional surgical site, initial encounter; K21.9 Gastro-esophageal reflux disease without esophagitis; F17.210 Nicotine dependence, cigarettes, uncomplicated; Z88.8 Allergy status to other drugs, medicaments and biological substances; Z79.899 Other long term (current) drug therapy; Z87.891 Personal history of nicotine dependence
CPT/HCPCS: 29105; 80053; 83605; 85025; 96365; 99283-25; J0878

== ENCOUNTER 2024-10-16 14:10 | Emergency (ER) | payer OTHER ==
[~2024-10-16] VITALS: Ht 172.7 cm; Wt 90.7 kg
[~2024-10-16 14:10] MED LIST changes: -DAPTOMYCIN IV SCH; -DAPTOmycin 750 MG in NS 50 ML IV SCH; -NS IV SCH
[2024-10-16 14:34] VITALS: BP 168/92
[2024-10-16 15:01] LABS: BASOPHILS ABSOLUTE AUTO 0.04 K/mm3 (0.00-0.23); BASOPHILS PERCENT AUTO 1 % (0-2); EOSINOPHILS ABSOLUTE AUTO 0.12 K/mm3 (0.00-0.68); EOSINOPHILS PERCENT AUTO 2 % (0-6); Hematocrit 30.4 % (37.0-53.0); Hemoglobin 9.2 g/dL (13.5-17.5); IMMATURE GRAN ABSOLUTE AUTO 0.05 K/mm3 (0.00-0.10); IMMATURE GRAN PERCENT AUTO 1 % (0-1); LYMPHOCYTES ABSOLUTE AUTO 1.66 K/mm3 (0.84-5.20); LYMPHOCYTES PERCENT AUTO 21 % (21-46); MONOCYTES ABSOLUTE AUTO 0.62 K/mm3 (0.16-1.47); MONOCYTES PERCENT AUTO 8 % (4-13); Mean Corpuscular HGB 23.3 pg (26.0-34.0); Mean Corpuscular HGB Conc 30.3 g/dL (31.5-36.5); Mean Corpuscular Volume 77 fL (80-100); Mean Platelet Volume 8.3 fL (9.1-12.4); NEUTROPHILS ABSOLUTE AUTO 5.57 K/mm3 (1.96-9.15); NEUTROPHILS PERCENT AUTO 69 % (41-73); Platelet Count 525 K/mm3 (150-400); RDW Coefficient Variation 18.4 % (11.7-14.2); Red Blood Cell Count 3.95 M/mm3 (4.30-5.90); White Blood Cell Count 8.06 K/mm3 (4.00-11.30)
[2024-10-16 15:19] LABS: Albumin, Blood 3.4 g/dL (3.4-5.0); Albumin/Globulin Ratio 0.8 (0.8-1.8); Bilirubin, Total 0.2 mg/dL (0.1-1.0); Bun/Creatinine Ratio 16.2 (12.0-20.0); Calcium, Blood 8.8 mg/dL (8.5-10.1); Creatinine, Blood 0.8 mg/dL (0.60-1.20); Globulin, Blood 4.3 g/dL (2.2-4.0); Total Protein, Blood 7.7 g/dL (6.4-8.2)
== END 2024-10-16 18:37 | disposition home or self-care (01) ==
LOC: ER 14:10
PROVIDERS: Physician Assistant
DX: T81.41XA Infection following a procedure, superficial incisional surgical site, initial encounter (principal); Z88.8 Allergy status to other drugs, medicaments and biological substances; Z79.899 Other long term (current) drug therapy; F17.210 Nicotine dependence, cigarettes, uncomplicated; K21.9 Gastro-esophageal reflux disease without esophagitis
CPT/HCPCS: 29105; 80053; 83605; 85025; 99283-25

== ENCOUNTER 2024-11-01 08:22 | Day surgery (SDC) | payer OTHER ==
[~2024-11-01 08:22] MED LIST changes: +DAPTOmycin 900 MG in NS 50 ML IV SCH; +Ertapenem Sodium 1,000 MG in NS 50 ML IV SCH
[2024-11-01 15:04] VITALS: BP 136/98
== END 2024-11-01 15:37 | disposition home or self-care (01) ==
LOC: ATC 08:22
DX: M86.68 Other chronic osteomyelitis, other site (principal)
CPT/HCPCS: 96365; 96368; J0878; J1335

== ENCOUNTER 2024-11-02 01:06 | Day surgery (SDC) | payer OTHER ==
[~2024-11-02 01:06] MED LIST changes: -DAPTOmycin 900 MG in NS 50 ML IV SCH
[2024-11-02] MEDS ORDERED: DAPTOmycin 900 MG in NS 50 ML IV SCH (07:30)
[2024-11-02 12:44] LABS: BASOPHILS ABSOLUTE AUTO 0.05 K/mm3 (0.00-0.23); BASOPHILS PERCENT AUTO 1 % (0-2); EOSINOPHILS ABSOLUTE AUTO 0.17 K/mm3 (0.00-0.68); EOSINOPHILS PERCENT AUTO 2 % (0-6); Hematocrit 25.4 % (37.0-53.0); Hemoglobin 7.8 g/dL (13.5-17.5); IMMATURE GRAN ABSOLUTE AUTO 0.04 K/mm3 (0.00-0.10); IMMATURE GRAN PERCENT AUTO 0 % (0-1); LYMPHOCYTES ABSOLUTE AUTO 1.76 K/mm3 (0.84-5.20); LYMPHOCYTES PERCENT AUTO 19 % (21-46); MONOCYTES ABSOLUTE AUTO 0.95 K/mm3 (0.16-1.47); MONOCYTES PERCENT AUTO 10 % (4-13); Mean Corpuscular HGB 23.1 pg (26.0-34.0); Mean Corpuscular HGB Conc 30.7 g/dL (31.5-36.5); Mean Corpuscular Volume 75 fL (80-100); Mean Platelet Volume 8.6 fL (9.1-12.4); NEUTROPHILS ABSOLUTE AUTO 6.22 K/mm3 (1.96-9.15); NEUTROPHILS PERCENT AUTO 68 % (41-73); Platelet Count 357 K/mm3 (150-400); RDW Coefficient Variation 16.4 % (11.7-14.2); RDW Standard Deviation 45.3 fL (35.1-46.3); Red Blood Cell Count 3.37 M/mm3 (4.30-5.90); White Blood Cell Count 9.19 K/mm3 (4.00-11.30)
[2024-11-02 13:18] LABS: C-REACTIVE PROTEIN, EXT RANGE 6.16 mg/dL (0.000-0.300)
[2024-11-02 13:22] LABS: Albumin, Blood 3.1 g/dL (3.4-5.0); Albumin/Globulin Ratio 0.7 (0.8-1.8); Bilirubin, Total 0.3 mg/dL (0.1-1.0); Bun/Creatinine Ratio 19.1 (12.0-20.0); Calcium, Blood 8.9 mg/dL (8.5-10.1); Creatinine, Blood 0.99 mg/dL (0.60-1.20); Globulin, Blood 4.5 g/dL (2.2-4.0); Potassium, Blood 4.1 mmol/L (3.5-5.5); Total Protein, Blood 7.6 g/dL (6.4-8.2)
== END 2024-11-02 12:26 | disposition home or self-care (01) ==
LOC: ATC 01:06
PROVIDERS: Internal Medicine Infectious Disease
DX: M86.68 Other chronic osteomyelitis, other site (principal)
CPT/HCPCS: 80053; 82550; 85025; 86140; 96365; 96368; J0878; J1335

== ENCOUNTER 2024-11-03 02:19 | Day surgery (SDC) | payer OTHER ==
[2024-11-03] MEDS ORDERED: DAPTOmycin 900 MG in NS 50 ML IV SCH (06:00)
[2024-11-03 11:47] VITALS: BP 145/84
== END 2024-11-03 12:01 | disposition home or self-care (01) ==
LOC: ATC 02:19
DX: M86.68 Other chronic osteomyelitis, other site (principal); Z79.899 Other long term (current) drug therapy
CPT/HCPCS: 96365; 96368; J0878; J1335

== ENCOUNTER 2024-11-04 03:17 | Day surgery (SDC) | payer OTHER ==
[2024-11-04] MEDS ORDERED: DAPTOmycin 900 MG in NS 50 ML IV SCH (06:00)
[2024-11-04 11:46] VITALS: BP 139/75
== END 2024-11-04 12:04 | disposition home or self-care (01) ==
LOC: ATC 03:17
DX: M86.68 Other chronic osteomyelitis, other site (principal); Z79.899 Other long term (current) drug therapy
CPT/HCPCS: 96365; 96368; J0878; J1335

== ENCOUNTER 2024-11-05 04:16 | Day surgery (SDC) | payer OTHER ==
[2024-11-05] MEDS ORDERED: DAPTOmycin 900 MG in NS 50 ML IV SCH (06:00)
[2024-11-05 10:43] VITALS: BP 132/65
== END 2024-11-05 11:15 | disposition home or self-care (01) ==
LOC: ATC 04:16
DX: M86.68 Other chronic osteomyelitis, other site (principal)
CPT/HCPCS: 96365; 96368; J0878; J1335

== ENCOUNTER 2024-11-06 10:29 | Day surgery (SDC) | payer OTHER ==
[~2024-11-06 10:29] MED LIST changes: +DAPTOmycin 900 MG in NS 50 ML IV SCH
[2024-11-06 10:42] VITALS: BP 137/79
== END 2024-11-06 11:10 | disposition home or self-care (01) ==
LOC: ATC 10:29
DX: M86.68 Other chronic osteomyelitis, other site (principal)
CPT/HCPCS: 96365; 96368; J0878; J1335

== ENCOUNTER 2024-11-07 04:26 | Day surgery (SDC) | payer OTHER ==
[~2024-11-07 04:26] MED LIST changes: -DAPTOmycin 900 MG in NS 50 ML IV SCH
[2024-11-07] MEDS ORDERED: DAPTOmycin 900 MG in NS 50 ML IV SCH (06:00)
[2024-11-07 10:59] VITALS: BP 149/66
== END 2024-11-07 11:18 | disposition home or self-care (01) ==
LOC: ATC 04:26
DX: M86.622 Other chronic osteomyelitis, left humerus (principal)
CPT/HCPCS: 96365; 96368; J0878; J1335

== ENCOUNTER 2024-11-08 04:49 | Day surgery (SDC) | payer OTHER ==
[2024-11-08] MEDS ORDERED: DAPTOmycin 900 MG in NS 50 ML IV SCH (06:00)
[2024-11-08 10:51] VITALS: BP 137/71
== END 2024-11-08 10:56 | disposition home or self-care (01) ==
LOC: ATC 04:49
DX: M86.68 Other chronic osteomyelitis, other site (principal)
CPT/HCPCS: 96365; 96368; J0878; J1335

== ENCOUNTER 2024-11-09 06:05 | Day surgery (SDC) | payer OTHER ==
[~2024-11-09 06:05] MED LIST changes: +DAPTOmycin 900 MG in NS 50 ML IV SCH
[2024-11-09 11:07] VITALS: BP 127/70
[2024-11-09 11:49] LABS: BASOPHILS ABSOLUTE AUTO 0.05 K/mm3 (0.00-0.23); BASOPHILS PERCENT AUTO 1 % (0-2); EOSINOPHILS ABSOLUTE AUTO 0.23 K/mm3 (0.00-0.68); EOSINOPHILS PERCENT AUTO 4 % (0-6); Hematocrit 28.2 % (37.0-53.0); Hemoglobin 8.3 g/dL (13.5-17.5); IMMATURE GRAN ABSOLUTE AUTO 0.02 K/mm3 (0.00-0.10); IMMATURE GRAN PERCENT AUTO 0 % (0-1); LYMPHOCYTES ABSOLUTE AUTO 1.92 K/mm3 (0.84-5.20); LYMPHOCYTES PERCENT AUTO 36 % (21-46); MONOCYTES ABSOLUTE AUTO 0.49 K/mm3 (0.16-1.47); MONOCYTES PERCENT AUTO 9 % (4-13); Mean Corpuscular HGB 22.5 pg (26.0-34.0); Mean Corpuscular HGB Conc 29.4 g/dL (31.5-36.5); Mean Corpuscular Volume 76 fL (80-100); Mean Platelet Volume 9.1 fL (9.1-12.4); NEUTROPHILS ABSOLUTE AUTO 2.66 K/mm3 (1.96-9.15); NEUTROPHILS PERCENT AUTO 50 % (41-73); Platelet Count 485 K/mm3 (150-400); RDW Coefficient Variation 16.3 % (11.7-14.2); RDW Standard Deviation 45.6 fL (35.1-46.3); Red Blood Cell Count 3.69 M/mm3 (4.30-5.90); White Blood Cell Count 5.37 K/mm3 (4.00-11.30)
[2024-11-09 12:11] LABS: C-REACTIVE PROTEIN, EXT RANGE 1.17 mg/dL (0.000-0.300)
[2024-11-09 12:15] LABS: Albumin, Blood 3.1 g/dL (3.4-5.0); Albumin/Globulin Ratio 0.7 (0.8-1.8); Bilirubin, Total 0.2 mg/dL (0.1-1.0); Creatinine, Blood 0.89 mg/dL (0.60-1.20); Globulin, Blood 4.5 g/dL (2.2-4.0); Potassium, Blood 3.9 mmol/L (3.5-5.5); Total Protein, Blood 7.6 g/dL (6.4-8.2)
[2024-11-09 12:25] LABS: BASOPHILS ABSOLUTE MAN 0.05 K/mm3 (0.00-0.23); BASOPHILS PERCENT MAN 1 % (0-2); EOSINOPHILS ABSOLUTE MAN 0.16 K/mm3 (0.00-0.68); EOSINOPHILS PERCENT MAN 3 % (0-6); LYMPHOCYTES PERCENT MAN 43 % (21-46); MONOCYTES ABSOLUTE MAN 0.37 K/mm3 (0.16-1.47); MONOCYTES PERCENT MAN 7 % (4-13); NEUTROPHILS ABSOLUTE MAN 2.47 K/mm3 (1.96-9.15); SEG NEUTROPHILS PERCENT MAN 46 % (41-73); TOTAL CELLS COUNTED 100
== END 2024-11-09 11:20 | disposition home or self-care (01) ==
LOC: ATC 06:05
PROVIDERS: Internal Medicine Infectious Disease
DX: M86.68 Other chronic osteomyelitis, other site (principal)
CPT/HCPCS: 80053; 82550; 85025; 86140; 96365; 96368; J0878; J1335

== ENCOUNTER 2024-11-10 04:59 | Day surgery (SDC) | payer OTHER ==
[~2024-11-10 04:59] MED LIST changes: -DAPTOmycin 900 MG in NS 50 ML IV SCH
[2024-11-10] MEDS ORDERED: DAPTOmycin 900 MG in NS 50 ML IV SCH (06:00)
[2024-11-10 10:49] VITALS: BP 107/81
== END 2024-11-10 11:15 | disposition home or self-care (01) ==
LOC: ATC 04:59
DX: M86.68 Other chronic osteomyelitis, other site (principal)
CPT/HCPCS: 96365; 96368; J0878; J1335

== ENCOUNTER 2024-11-11 01:46 | Day surgery (SDC) | payer OTHER ==
[~2024-11-11 01:46] MED LIST changes: -Ertapenem Sodium 1,000 MG in NS 50 ML IV SCH
[2024-11-11] MEDS ORDERED: Ertapenem Sodium 1,000 MG in NS 50 ML IV SCH (06:00)
[2024-11-11] MEDS ORDERED: DAPTOmycin 900 MG in NS 50 ML IV SCH (06:00)
[2024-11-11 10:47] VITALS: BP 116/67
== END 2024-11-11 11:12 | disposition home or self-care (01) ==
LOC: ATC 01:46
DX: M86.68 Other chronic osteomyelitis, other site (principal)
CPT/HCPCS: 96365; 96368; J0878; J1335

== ENCOUNTER 2024-11-12 06:15 | Day surgery (SDC) | payer OTHER ==
[~2024-11-12 06:15] MED LIST changes: +DAPTOmycin 900 MG in NS 50 ML IV SCH; +Ertapenem Sodium 1,000 MG in NS 50 ML IV SCH
[2024-11-12 10:27] VITALS: BP 126/75
== END 2024-11-12 10:46 | disposition home or self-care (01) ==
LOC: ATC 06:15
DX: M86.68 Other chronic osteomyelitis, other site (principal)
CPT/HCPCS: 96365; 96368; J0878; J1335

== ENCOUNTER 2024-11-14 02:52 | Day surgery (SDC) | payer OTHER ==
[~2024-11-14 02:52] MED LIST changes: -DAPTOmycin 900 MG in NS 50 ML IV SCH
[2024-11-14] MEDS ORDERED: DAPTOmycin 900 MG in NS 50 ML IV SCH (06:00)
[2024-11-14 10:48] VITALS: BP 144/69
== END 2024-11-14 11:24 | disposition home or self-care (01) ==
LOC: ATC 02:52
DX: M86.68 Other chronic osteomyelitis, other site (principal)
CPT/HCPCS: 96365; 96368; J0878; J1335

== ENCOUNTER 2024-11-15 09:29 | Day surgery (SDC) | payer OTHER ==
[~2024-11-15 09:29] MED LIST changes: +DAPTOmycin 900 MG in NS 50 ML IV SCH
== END 2024-11-15 10:35 | disposition home or self-care (01) ==
LOC: ATC 09:29
DX: M86.68 Other chronic osteomyelitis, other site (principal)
CPT/HCPCS: 96365; 96368; J0878; J1335

== ENCOUNTER 2024-11-16 05:10 | Day surgery (SDC) | payer OTHER ==
[~2024-11-16 05:10] MED LIST changes: -DAPTOmycin 900 MG in NS 50 ML IV SCH
[2024-11-16] MEDS ORDERED: DAPTOmycin 900 MG in NS 50 ML IV SCH (06:00)
[2024-11-16 11:48] VITALS: BP 146/69
[2024-11-16 12:47] LABS: BASOPHILS ABSOLUTE AUTO 0.02 K/mm3 (0.00-0.23); BASOPHILS PERCENT AUTO 0 % (0-2); EOSINOPHILS PERCENT AUTO 4 % (0-6); Hematocrit 27.9 % (37.0-53.0); Hemoglobin 8.5 g/dL (13.5-17.5); IMMATURE GRAN ABSOLUTE AUTO 0.01 K/mm3 (0.00-0.10); IMMATURE GRAN PERCENT AUTO 0 % (0-1); LYMPHOCYTES ABSOLUTE AUTO 1.84 K/mm3 (0.84-5.20); LYMPHOCYTES PERCENT AUTO 32 % (21-46); MONOCYTES PERCENT AUTO 12 % (4-13); Mean Corpuscular HGB 22.4 pg (26.0-34.0); Mean Corpuscular HGB Conc 30.5 g/dL (31.5-36.5); Mean Corpuscular Volume 74 fL (80-100); Mean Platelet Volume 8.9 fL (9.1-12.4); NEUTROPHILS ABSOLUTE AUTO 2.93 K/mm3 (1.96-9.15); NEUTROPHILS PERCENT AUTO 51 % (41-73); Platelet Count 494 K/mm3 (150-400); RDW Coefficient Variation 16.3 % (11.7-14.2); RDW Standard Deviation 43.1 fL (35.1-46.3); Red Blood Cell Count 3.79 M/mm3 (4.30-5.90)
[2024-11-16 13:05] LABS: C-REACTIVE PROTEIN, EXT RANGE 1.34 mg/dL (0.000-0.300)
[2024-11-16 13:06] LABS: Albumin, Blood 3.4 g/dL (3.4-5.0); Albumin/Globulin Ratio 0.8 (0.8-1.8); Bilirubin, Total 0.3 mg/dL (0.1-1.0); Bun/Creatinine Ratio 16.2 (12.0-20.0); Calcium, Blood 9.1 mg/dL (8.5-10.1); Creatinine, Blood 0.74 mg/dL (0.60-1.20); Globulin, Blood 4.5 g/dL (2.2-4.0); Total Protein, Blood 7.9 g/dL (6.4-8.2)
[2024-11-16 16:49] VITALS: BP 104/79
== END 2024-11-16 17:05 | disposition home or self-care (01) ==
LOC: ATC 05:10
PROVIDERS: Internal Medicine Infectious Disease
DX: M86.68 Other chronic osteomyelitis, other site (principal)
CPT/HCPCS: 80053; 82550; 85025; 86140; 96365; J0878; J1335

== ENCOUNTER 2024-11-17 01:58 | Day surgery (SDC) | payer OTHER ==
[2024-11-17] MEDS ORDERED: DAPTOmycin 900 MG in NS 50 ML IV SCH (06:00)
[2024-11-17 09:30] VITALS: BP 141/72
== END 2024-11-17 10:00 | disposition home or self-care (01) ==
LOC: ATC 01:58
DX: M86.68 Other chronic osteomyelitis, other site (principal)
CPT/HCPCS: 96365; 96368; J0878; J1335

== ENCOUNTER 2024-11-18 03:32 | Day surgery (SDC) | payer OTHER ==
[~2024-11-18 03:32] MED LIST changes: -Ertapenem Sodium 1,000 MG in NS 50 ML IV SCH
[2024-11-18] MEDS ORDERED: Ertapenem Sodium 1,000 MG in NS 50 ML IV SCH (06:00)
[2024-11-18] MEDS ORDERED: DAPTOmycin 900 MG in NS 50 ML IV SCH (06:00)
[2024-11-18 10:28] VITALS: BP 133/69
--- NOTE | 2024-11-18 10:48 | NUR ---
END TIME FOR ANTIBIOTICS AT 1048, UNABLE TO DOCUMENT AT THIS TIME ON EMAR.
== END 2024-11-18 10:49 | disposition home or self-care (01) ==
LOC: ATC 03:32
DX: M86.68 Other chronic osteomyelitis, other site (principal); Z79.899 Other long term (current) drug therapy
CPT/HCPCS: 96365; 96368; J0878; J1335

== ENCOUNTER 2024-11-19 06:09 | Day surgery (SDC) | payer OTHER ==
[~2024-11-19 06:09] MED LIST changes: +Ertapenem Sodium 1,000 MG in NS 50 ML IV SCH
[2024-11-19 09:56] VITALS: BP 150/85
== END 2024-11-19 10:14 | disposition home or self-care (01) ==
LOC: ATC 06:09
DX: M86.68 Other chronic osteomyelitis, other site (principal); Z79.899 Other long term (current) drug therapy
CPT/HCPCS: 96365; J1335

== ENCOUNTER 2024-11-20 06:46 | Day surgery (SDC) | payer OTHER ==
[~2024-11-20 06:46] MED LIST changes: +DAPTOmycin 900 MG in NS 50 ML IV SCH
[2024-11-20 09:58] VITALS: BP 125/69
== END 2024-11-20 10:20 | disposition home or self-care (01) ==
LOC: ATC 06:46
DX: M86.68 Other chronic osteomyelitis, other site (principal); Z79.899 Other long term (current) drug therapy
CPT/HCPCS: 96365; 96368; J0878; J1335

== ENCOUNTER 2024-11-21 07:44 | Day surgery (SDC) | payer OTHER ==
[2024-11-21 09:49] VITALS: BP 140/73
--- NOTE | 2024-11-21 12:41 | NUR ---
LAB RESULTS OF CPK TEST DONE THIS AM FAXED TO DR. CALVIN'S OFFICE.
== END 2024-11-21 10:17 | disposition home or self-care (01) ==
LOC: ATC 07:44
DX: M86.68 Other chronic osteomyelitis, other site (principal); Z79.899 Other long term (current) drug therapy
CPT/HCPCS: 82550; 96365; 96368; J0878; J1335

== ENCOUNTER 2024-11-22 01:22 | Day surgery (SDC) | payer OTHER ==
[~2024-11-22 01:22] MED LIST changes: -DAPTOmycin 900 MG in NS 50 ML IV SCH; -Ertapenem Sodium 1,000 MG in NS 50 ML IV SCH
[2024-11-22] MEDS ORDERED: Ertapenem Sodium 1,000 MG in NS 50 ML IV SCH (06:00)
[2024-11-22] MEDS ORDERED: DAPTOmycin 900 MG in NS 50 ML IV SCH (06:00)
[2024-11-22 09:39] VITALS: BP 135/76
== END 2024-11-22 09:58 | disposition home or self-care (01) ==
LOC: ATC 01:22
DX: M86.68 Other chronic osteomyelitis, other site (principal)
CPT/HCPCS: 96365; 96368; J0878; J1335

== ENCOUNTER 2024-11-23 05:40 | Day surgery (SDC) | payer OTHER ==
[~2024-11-23 05:40] MED LIST changes: +Ertapenem Sodium 1,000 MG in NS 50 ML IV SCH
[2024-11-23] MEDS ORDERED: DAPTOmycin 900 MG in NS 50 ML IV SCH (06:00)
[2024-11-23 09:37] VITALS: BP 131/63
[2024-11-23 11:15] LABS: BASOPHILS ABSOLUTE AUTO 0.04 K/mm3 (0.00-0.23); BASOPHILS PERCENT AUTO 1 % (0-2); EOSINOPHILS ABSOLUTE AUTO 0.18 K/mm3 (0.00-0.68); EOSINOPHILS PERCENT AUTO 3 % (0-6); Hematocrit 28.8 % (37.0-53.0); Hemoglobin 8.6 g/dL (13.5-17.5); IMMATURE GRAN ABSOLUTE AUTO 0.02 K/mm3 (0.00-0.10); IMMATURE GRAN PERCENT AUTO 0 % (0-1); LYMPHOCYTES ABSOLUTE AUTO 1.21 K/mm3 (0.84-5.20); LYMPHOCYTES PERCENT AUTO 19 % (21-46); MONOCYTES ABSOLUTE AUTO 0.75 K/mm3 (0.16-1.47); MONOCYTES PERCENT AUTO 12 % (4-13); Mean Corpuscular HGB 22.1 pg (26.0-34.0); Mean Corpuscular HGB Conc 29.9 g/dL (31.5-36.5); Mean Corpuscular Volume 74 fL (80-100); Mean Platelet Volume 9.1 fL (9.1-12.4); NEUTROPHILS ABSOLUTE AUTO 4.06 K/mm3 (1.96-9.15); NEUTROPHILS PERCENT AUTO 65 % (41-73); Platelet Count 347 K/mm3 (150-400); RDW Coefficient Variation 16.6 % (11.7-14.2); RDW Standard Deviation 44.6 fL (35.1-46.3); Red Blood Cell Count 3.89 M/mm3 (4.30-5.90); White Blood Cell Count 6.26 K/mm3 (4.00-11.30)
[2024-11-23 12:25] LABS: Albumin, Blood 3.3 g/dL (3.4-5.0); Albumin/Globulin Ratio 0.8 (0.8-1.8); Bilirubin, Total 0.2 mg/dL (0.1-1.0); Bun/Creatinine Ratio 22.2 (12.0-20.0); Calcium, Blood 8.9 mg/dL (8.5-10.1); Creatinine, Blood 0.72 mg/dL (0.60-1.20); Globulin, Blood 4.2 g/dL (2.2-4.0); Potassium, Blood 4.2 mmol/L (3.5-5.5); Total Protein, Blood 7.5 g/dL (6.4-8.2)
== END 2024-11-23 10:25 | disposition home or self-care (01) ==
LOC: ATC 05:40
PROVIDERS: Internal Medicine Infectious Disease
DX: M86.68 Other chronic osteomyelitis, other site (principal)
CPT/HCPCS: 80053; 82550; 85025; 86140; 96365; 96368; J0878; J1335

== ENCOUNTER 2024-11-24 01:04 | Day surgery (SDC) | payer OTHER ==
[2024-11-24] MEDS ORDERED: DAPTOmycin 900 MG in NS 50 ML IV SCH (06:00)
[2024-11-24 09:37] VITALS: BP 148/75
== END 2024-11-24 09:56 | disposition home or self-care (01) ==
LOC: ATC 01:04
DX: M86.68 Other chronic osteomyelitis, other site (principal); Z96.621 Presence of right artificial elbow joint; Z88.1 Allergy status to other antibiotic agents; Z79.899 Other long term (current) drug therapy
CPT/HCPCS: 96365; 96368; J0878; J1335

== ENCOUNTER 2024-11-25 03:24 | Day surgery (SDC) | payer OTHER ==
[2024-11-25] MEDS ORDERED: DAPTOmycin 900 MG in NS 50 ML IV SCH (06:00)
[2024-11-25 10:06] VITALS: BP 112/71
== END 2024-11-25 10:35 | disposition home or self-care (01) ==
LOC: ATC 03:24
DX: M86.68 Other chronic osteomyelitis, other site (principal)
CPT/HCPCS: 96365; 96368; J0878; J1335

== ENCOUNTER 2024-11-26 03:04 | Day surgery (SDC) | payer OTHER ==
[2024-11-26] MEDS ORDERED: DAPTOmycin 900 MG in NS 50 ML IV SCH (06:00)
[2024-11-26 09:46] VITALS: BP 160/84
== END 2024-11-26 10:07 | disposition home or self-care (01) ==
LOC: ATC 03:04
DX: M86.68 Other chronic osteomyelitis, other site (principal)
CPT/HCPCS: 96365; 96368; J0878; J1335

== ENCOUNTER 2024-11-27 02:38 | Day surgery (SDC) | payer OTHER ==
[2024-11-27] MEDS ORDERED: DAPTOmycin 900 MG in NS 50 ML IV SCH (06:00)
[2024-11-27 09:37] VITALS: BP 126/82
== END 2024-11-27 10:05 | disposition home or self-care (01) ==
LOC: ATC 02:38
DX: M86.68 Other chronic osteomyelitis, other site (principal)
CPT/HCPCS: 96365; 96368; J0878; J1335

== ENCOUNTER 2024-11-28 01:14 | Day surgery (SDC) | payer OTHER ==
[2024-11-28] MEDS ORDERED: DAPTOmycin 900 MG in NS 50 ML IV SCH (06:00)
[2024-11-28 10:28] VITALS: BP 144/72
== END 2024-11-28 11:02 | disposition home or self-care (01) ==
LOC: ATC 01:14
DX: M86.68 Other chronic osteomyelitis, other site (principal)
CPT/HCPCS: 96365; 96368; J0878; J1335

== ENCOUNTER 2024-11-29 08:25 | Day surgery (SDC) | payer OTHER ==
[~2024-11-29 08:25] MED LIST changes: +DAPTOmycin 900 MG in NS 50 ML IV SCH
[2024-11-29 10:49] VITALS: BP 148/76
== END 2024-11-29 11:08 | disposition home or self-care (01) ==
LOC: ATC 08:25
DX: M86.68 Other chronic osteomyelitis, other site (principal)
CPT/HCPCS: 96365; 96368; J0878; J1335

== ENCOUNTER 2024-11-30 02:36 | Day surgery (SDC) | payer OTHER ==
[~2024-11-30 02:36] MED LIST changes: -DAPTOmycin 900 MG in NS 50 ML IV SCH
[2024-11-30] MEDS ORDERED: DAPTOmycin 900 MG in NS 50 ML IV SCH (06:00)
[2024-11-30 11:20] LABS: BASOPHILS ABSOLUTE AUTO 0.03 K/mm3 (0.00-0.23); BASOPHILS PERCENT AUTO 1 % (0-2); EOSINOPHILS ABSOLUTE AUTO 0.08 K/mm3 (0.00-0.68); EOSINOPHILS PERCENT AUTO 2 % (0-6); Hematocrit 29.4 % (37.0-53.0); Hemoglobin 8.7 g/dL (13.5-17.5); IMMATURE GRAN ABSOLUTE AUTO 0.02 K/mm3 (0.00-0.10); IMMATURE GRAN PERCENT AUTO 0 % (0-1); LYMPHOCYTES ABSOLUTE AUTO 1.56 K/mm3 (0.84-5.20); LYMPHOCYTES PERCENT AUTO 30 % (21-46); MONOCYTES ABSOLUTE AUTO 0.47 K/mm3 (0.16-1.47); MONOCYTES PERCENT AUTO 9 % (4-13); Mean Corpuscular HGB 21.5 pg (26.0-34.0); Mean Corpuscular HGB Conc 29.6 g/dL (31.5-36.5); Mean Corpuscular Volume 73 fL (80-100); Mean Platelet Volume 9.2 fL (9.1-12.4); NEUTROPHILS ABSOLUTE AUTO 3.09 K/mm3 (1.96-9.15); NEUTROPHILS PERCENT AUTO 59 % (41-73); Platelet Count 332 K/mm3 (150-400); RDW Coefficient Variation 16.4 % (11.7-14.2); RDW Standard Deviation 43.1 fL (35.1-46.3); Red Blood Cell Count 4.04 M/mm3 (4.30-5.90); White Blood Cell Count 5.25 K/mm3 (4.00-11.30)
[2024-11-30 11:45] LABS: Albumin, Blood 3.4 g/dL (3.4-5.0); Albumin/Globulin Ratio 0.7 (0.8-1.8); Bilirubin, Total 0.5 mg/dL (0.1-1.0); Bun/Creatinine Ratio 14.9 (12.0-20.0); C-REACTIVE PROTEIN, EXT RANGE 0.885 mg/dL (0.000-0.300); Calcium, Blood 9.1 mg/dL (8.5-10.1); Creatinine, Blood 0.74 mg/dL (0.60-1.20); Globulin, Blood 4.7 g/dL (2.2-4.0); Potassium, Blood 3.8 mmol/L (3.5-5.5); Total Protein, Blood 8.1 g/dL (6.4-8.2)
== END 2024-11-30 10:34 | disposition home or self-care (01) ==
LOC: ATC 02:36
PROVIDERS: Internal Medicine Infectious Disease
DX: M86.68 Other chronic osteomyelitis, other site (principal)
CPT/HCPCS: 80053; 82550; 85025; 86140; J0878; J1335

== ENCOUNTER 2024-12-01 00:21 | Day surgery (SDC) | payer OTHER ==
[~2024-12-01 00:21] MED LIST changes: -Ertapenem Sodium 1,000 MG in NS 50 ML IV SCH
[2024-12-01] MEDS ORDERED: Ertapenem Sodium 1,000 MG in NS 50 ML IV SCH (01:00)
[2024-12-01] MEDS ORDERED: DAPTOmycin 900 MG in NS 50 ML IV SCH (06:00)
[2024-12-01 09:36] VITALS: BP 163/86
== END 2024-12-01 10:08 | disposition home or self-care (01) ==
LOC: ATC 00:21
DX: M86.68 Other chronic osteomyelitis, other site (principal); Z88.1 Allergy status to other antibiotic agents; Z79.899 Other long term (current) drug therapy
CPT/HCPCS: 96365; 96368; J0878; J1335

== ENCOUNTER 2024-12-02 01:56 | Day surgery (SDC) | payer OTHER ==
[~2024-12-02 01:56] MED LIST changes: +Ertapenem Sodium 1,000 MG in NS 50 ML IV SCH
[2024-12-02] MEDS ORDERED: DAPTOmycin 900 MG in NS 50 ML IV SCH (06:00)
[2024-12-02 09:31] VITALS: BP 151/80
== END 2024-12-02 09:54 | disposition home or self-care (01) ==
LOC: ATC 01:56
DX: M86.68 Other chronic osteomyelitis, other site (principal)
CPT/HCPCS: J0878; J1335

== ENCOUNTER 2025-03-19 04:22 | Day surgery (SDC) | payer OTHER ==
[~2025-03-19 04:22] MED LIST changes: +CefTRIAXone Sodium 2,000 MG in NS 100 ML IV SCH; -Ertapenem Sodium 1,000 MG in NS 50 ML IV SCH
[2025-03-19 16:00] VITALS: BP 157/65
== END 2025-03-19 16:25 | disposition home or self-care (01) ==
LOC: ATC 04:22
DX: M86.621 Other chronic osteomyelitis, right humerus (principal); J44.9 Chronic obstructive pulmonary disease, unspecified; Z79.899 Other long term (current) drug therapy
CPT/HCPCS: 96365; J0696

== ENCOUNTER 2025-03-20 03:51 | Day surgery (SDC) | payer OTHER ==
[2025-03-20 15:02] VITALS: BP 132/85
== END 2025-03-20 15:24 | disposition home or self-care (01) ==
LOC: ATC 03:51
DX: M86.621 Other chronic osteomyelitis, right humerus (principal); B95.61 Methicillin susceptible Staphylococcus aureus infection as the cause of diseases classified elsewhere; B95.7 Other staphylococcus as the cause of diseases classified elsewhere; J44.9 Chronic obstructive pulmonary disease, unspecified
CPT/HCPCS: 96365; J0696

== ENCOUNTER 2025-03-21 04:07 | Day surgery (SDC) | payer OTHER ==
[2025-03-21 15:05] VITALS: BP 122/86
== END 2025-03-21 15:25 | disposition home or self-care (01) ==
LOC: ATC 04:07
DX: M86.8X2 Other osteomyelitis, upper arm (principal); B95.61 Methicillin susceptible Staphylococcus aureus infection as the cause of diseases classified elsewhere; B95.7 Other staphylococcus as the cause of diseases classified elsewhere; J44.9 Chronic obstructive pulmonary disease, unspecified; Z79.899 Other long term (current) drug therapy
CPT/HCPCS: 96365; J0696

== ENCOUNTER 2025-03-22 01:01 | Day surgery (SDC) | payer OTHER ==
[2025-03-22 14:52] VITALS: BP 132/66
== END 2025-03-22 15:15 | disposition home or self-care (01) ==
LOC: ATC 01:01
DX: M86.621 Other chronic osteomyelitis, right humerus (principal); B95.61 Methicillin susceptible Staphylococcus aureus infection as the cause of diseases classified elsewhere; B95.7 Other staphylococcus as the cause of diseases classified elsewhere; J44.9 Chronic obstructive pulmonary disease, unspecified; Z79.2 Long term (current) use of antibiotics
CPT/HCPCS: 96365; J0696

== ENCOUNTER 2025-03-23 03:23 | Day surgery (SDC) | payer OTHER ==
[2025-03-23 14:44] VITALS: BP 101/63
== END 2025-03-23 15:10 | disposition home or self-care (01) ==
LOC: ATC 03:23
DX: M86.621 Other chronic osteomyelitis, right humerus (principal); B95.61 Methicillin susceptible Staphylococcus aureus infection as the cause of diseases classified elsewhere; B95.7 Other staphylococcus as the cause of diseases classified elsewhere; J44.9 Chronic obstructive pulmonary disease, unspecified; Z79.899 Other long term (current) drug therapy
CPT/HCPCS: 96365; J0696

== ENCOUNTER 2025-03-24 00:48 | Day surgery (SDC) | payer OTHER ==
[~2025-03-24 00:48] MED LIST changes: -CefTRIAXone Sodium 2,000 MG in NS 100 ML IV SCH
[2025-03-24] MEDS ORDERED: CefTRIAXone Sodium 2,000 MG in NS 100 ML IV SCH (06:00)
[2025-03-24 15:15] VITALS: BP 122/59
[2025-03-24 16:06] LABS: BASOPHILS ABSOLUTE AUTO 0.04 K/mm3 (0.00-0.23); BASOPHILS PERCENT AUTO 1 % (0-2); EOSINOPHILS ABSOLUTE AUTO 0.18 K/mm3 (0.00-0.68); EOSINOPHILS PERCENT AUTO 3 % (0-6); Hematocrit 29.5 % (37.0-53.0); Hemoglobin 8.5 g/dL (13.5-17.5); IMMATURE GRAN ABSOLUTE AUTO 0.02 K/mm3 (0.00-0.10); IMMATURE GRAN PERCENT AUTO 0 % (0-1); LYMPHOCYTES ABSOLUTE AUTO 1.99 K/mm3 (0.84-5.20); LYMPHOCYTES PERCENT AUTO 35 % (21-46); MONOCYTES ABSOLUTE AUTO 0.68 K/mm3 (0.16-1.47); MONOCYTES PERCENT AUTO 12 % (4-13); Mean Corpuscular HGB 20.2 pg (26.0-34.0); Mean Corpuscular HGB Conc 28.8 g/dL (31.5-36.5); Mean Corpuscular Volume 70 fL (80-100); NEUTROPHILS ABSOLUTE AUTO 2.77 K/mm3 (1.96-9.15); NEUTROPHILS PERCENT AUTO 49 % (41-73); Platelet Count 408 K/mm3 (150-400); RDW Coefficient Variation 18.2 % (11.7-14.2); RDW Standard Deviation 45.5 fL (35.1-46.3); Red Blood Cell Count 4.21 M/mm3 (4.30-5.90); White Blood Cell Count 5.68 K/mm3 (4.00-11.30)
[2025-03-24 16:16] LABS: C-REACTIVE PROTEIN, EXT RANGE 1.08 mg/dL (0.000-0.300)
[2025-03-24 16:18] LABS: Albumin, Blood 3.2 g/dL (3.4-5.0); Albumin/Globulin Ratio 0.7 (0.8-1.8); Bilirubin, Total 0.2 mg/dL (0.1-1.0); Bun/Creatinine Ratio 12.3 (12.0-20.0); Calcium, Blood 8.9 mg/dL (8.5-10.1); Creatinine, Blood 0.9 mg/dL (0.60-1.20); Globulin, Blood 4.3 g/dL (2.2-4.0); Potassium, Blood 3.6 mmol/L (3.5-5.5); Total Protein, Blood 7.5 g/dL (6.4-8.2)
== END 2025-03-24 15:39 | disposition home or self-care (01) ==
LOC: ATC 00:48
PROVIDERS: Internal Medicine Infectious Disease
DX: M86.621 Other chronic osteomyelitis, right humerus (principal); B95.61 Methicillin susceptible Staphylococcus aureus infection as the cause of diseases classified elsewhere; B95.7 Other staphylococcus as the cause of diseases classified elsewhere; J44.9 Chronic obstructive pulmonary disease, unspecified; Z79.2 Long term (current) use of antibiotics; Z79.899 Other long term (current) drug therapy
CPT/HCPCS: 80053; 85025; 86140; 96365; J0696

== ENCOUNTER 2025-03-25 02:23 | Day surgery (SDC) | payer OTHER ==
[2025-03-25] MEDS ORDERED: CefTRIAXone Sodium 2,000 MG in NS 100 ML IV SCH (06:00)
[2025-03-25 15:06] VITALS: BP 143/78
== END 2025-03-25 15:05 | disposition home or self-care (01) ==
LOC: ATC 02:23
DX: M86.621 Other chronic osteomyelitis, right humerus (principal); B95.61 Methicillin susceptible Staphylococcus aureus infection as the cause of diseases classified elsewhere; B95.7 Other staphylococcus as the cause of diseases classified elsewhere; J44.9 Chronic obstructive pulmonary disease, unspecified; Z79.2 Long term (current) use of antibiotics; Z79.899 Other long term (current) drug therapy
CPT/HCPCS: 96365; J0696

== ENCOUNTER 2025-03-26 01:20 | Day surgery (SDC) | payer OTHER ==
[2025-03-26] MEDS ORDERED: CefTRIAXone Sodium 2,000 MG in NS 100 ML IV SCH (06:00)
[2025-03-26 15:29] VITALS: BP 149/74
== END 2025-03-26 15:50 | disposition home or self-care (01) ==
LOC: ATC 01:20
DX: M86.621 Other chronic osteomyelitis, right humerus (principal); B95.61 Methicillin susceptible Staphylococcus aureus infection as the cause of diseases classified elsewhere; B95.7 Other staphylococcus as the cause of diseases classified elsewhere; J44.9 Chronic obstructive pulmonary disease, unspecified; Z79.2 Long term (current) use of antibiotics; Z79.899 Other long term (current) drug therapy
CPT/HCPCS: 96365; J0696

== ENCOUNTER 2025-03-27 03:43 | Day surgery (SDC) | payer OTHER ==
[2025-03-27] MEDS ORDERED: CefTRIAXone Sodium 2,000 MG in NS 100 ML IV SCH (06:00)
[2025-03-27 10:00] VITALS: BP 157/82
== END 2025-03-27 10:20 | disposition home or self-care (01) ==
LOC: ATC 03:43
DX: M86.621 Other chronic osteomyelitis, right humerus (principal); B95.61 Methicillin susceptible Staphylococcus aureus infection as the cause of diseases classified elsewhere; B95.7 Other staphylococcus as the cause of diseases classified elsewhere; J44.9 Chronic obstructive pulmonary disease, unspecified; Z79.2 Long term (current) use of antibiotics; Z79.899 Other long term (current) drug therapy
CPT/HCPCS: 96365; J0696

== ENCOUNTER 2025-05-13 14:44 | Emergency (ER) | payer OTHER ==
[~2025-05-13] VITALS: Ht 177.8 cm; Wt 93.0 kg
[2025-05-13 15:46] LABS: BASOPHILS ABSOLUTE AUTO 0.03 K/mm3 (0.00-0.23); BASOPHILS PERCENT AUTO 0 % (0-2); EOSINOPHILS ABSOLUTE AUTO 0.11 K/mm3 (0.00-0.68); EOSINOPHILS PERCENT AUTO 1 % (0-6); Hematocrit 31.9 % (37.0-53.0); Hemoglobin 9.3 g/dL (13.5-17.5); IMMATURE GRAN ABSOLUTE AUTO 0.04 K/mm3 (0.00-0.10); IMMATURE GRAN PERCENT AUTO 1 % (0-1); LYMPHOCYTES ABSOLUTE AUTO 1.96 K/mm3 (0.84-5.20); LYMPHOCYTES PERCENT AUTO 25 % (21-46); MONOCYTES ABSOLUTE AUTO 0.55 K/mm3 (0.16-1.47); MONOCYTES PERCENT AUTO 7 % (4-13); Mean Corpuscular HGB Conc 29.2 g/dL (31.5-36.5); Mean Corpuscular Volume 67 fL (80-100); NEUTROPHILS ABSOLUTE AUTO 5.23 K/mm3 (1.96-9.15); NEUTROPHILS PERCENT AUTO 66 % (41-73); NRBC ABSOLUTE 0.00 K/mm3 (0.00-0.02); NRBC Auto 0.0 /100 WBC (0.0-0.2); RDW Coefficient Variation 17.2 % (11.7-14.2); RDW Standard Deviation 41.3 fL (35.1-46.3)
[2025-05-13] MEDS ORDERED: HYDROmorphone HCl/Pf 1MG SYR IV ONE ×2 (16:05→18:35)
[2025-05-13 16:11] LABS: Alanine Aminotransfer (ALT/SGP 15.0 U/L (12-78); Albumin, Blood 3.0 g/dL (3.4-5.0); Albumin/Globulin Ratio 0.5 (0.8-1.8); Anion Gap 10.0 mmol/L (3-11); Aspartate Aminotrans (AST/SGOT 11.0 U/L (12-37); Bilirubin, Total 0.2 mg/dL (0.1-1.0); Blood Urea Nitrogen 12.0 mg/dL (8-24); CO2, Blood 27.0 mmol/L (21-32); Calcium, Blood 9.1 mg/dL (8.5-10.1); Chloride, Blood 104.0 mmol/L (98-108); Creatinine, Blood 0.72 mg/dL (0.60-1.20); Globulin, Blood 5.9 g/dL (2.2-4.0); Glucose, Blood 133.0 mg/dL (70-99); Potassium, Blood 3.6 mmol/L (3.5-5.5); Sodium, Blood 137.0 mmol/L (136-145); Total Protein, Blood 8.9 g/dL (6.4-8.2)
[2025-05-13 18:00] VITALS: BP 126/98
== END 2025-05-13 18:55 | disposition home or self-care (01) ==
LOC: ER 14:44
PROVIDERS: Physician Assistant
DX: M25.521 Pain in right elbow (principal); G89.29 Other chronic pain; K21.9 Gastro-esophageal reflux disease without esophagitis; F17.210 Nicotine dependence, cigarettes, uncomplicated; Z79.899 Other long term (current) drug therapy; Z88.8 Allergy status to other drugs, medicaments and biological substances
CPT/HCPCS: 36415; 73201; 80053; 83605; 85025; 87040; 99284-25; J1171; Q9967

== ENCOUNTER 2025-05-25 14:06 | Day surgery (SDC) | payer OTHER ==
[~2025-05-25 14:06] MED LIST changes: +DAPTOmycin 1,000 MG in NS 50 ML IV SCH
[2025-05-25 15:27] VITALS: BP 135/68
== END 2025-05-25 15:50 | disposition home or self-care (01) ==
LOC: ATC 14:06
DX: M86.621 Other chronic osteomyelitis, right humerus (principal); J44.9 Chronic obstructive pulmonary disease, unspecified; Z79.899 Other long term (current) drug therapy
CPT/HCPCS: 96365; J0878

== ENCOUNTER 2025-05-26 08:10 | Day surgery (SDC) | payer OTHER ==
[~2025-05-26 08:10] MED LIST changes: -DAPTOmycin 1,000 MG in NS 50 ML IV SCH
[2025-05-26] MEDS ORDERED: DAPTOmycin 1,000 MG in NS 50 ML IV SCH (10:55)
[2025-05-26 15:22] VITALS: BP 121/68
== END 2025-05-26 15:46 | disposition home or self-care (01) ==
LOC: ATC 08:10
DX: M86.621 Other chronic osteomyelitis, right humerus (principal); J44.9 Chronic obstructive pulmonary disease, unspecified; Z79.1 Long term (current) use of non-steroidal anti-inflammatories (NSAID); Z79.899 Other long term (current) drug therapy
CPT/HCPCS: 96365; J0878

== ENCOUNTER 2025-05-27 10:15 | Day surgery (SDC) | payer OTHER ==
[~2025-05-27 10:15] MED LIST changes: +DAPTOmycin 1,000 MG in NS 50 ML IV SCH
[2025-05-27 15:13] VITALS: BP 134/77
== END 2025-05-27 15:33 | disposition home or self-care (01) ==
LOC: ATC 10:15
DX: M86.621 Other chronic osteomyelitis, right humerus (principal); J44.9 Chronic obstructive pulmonary disease, unspecified; Z79.1 Long term (current) use of non-steroidal anti-inflammatories (NSAID); Z79.899 Other long term (current) drug therapy
CPT/HCPCS: J0878

== ENCOUNTER 2025-05-28 07:05 | Day surgery (SDC) | payer OTHER ==
[2025-05-28 15:08] VITALS: BP 139/58
== END 2025-05-28 15:33 | disposition home or self-care (01) ==
LOC: ATC 07:05
DX: M86.621 Other chronic osteomyelitis, right humerus (principal)
CPT/HCPCS: J0878

== ENCOUNTER 2025-06-03 00:29 | Day surgery (SDC) | payer OTHER ==
[~2025-06-03 00:29] MED LIST changes: -DAPTOmycin 1,000 MG in NS 50 ML IV SCH
[2025-06-03] MEDS ORDERED: DAPTOmycin 1,000 MG in NS 50 ML IV SCH (06:00)
[2025-06-03 15:08] VITALS: BP 121/77
== END 2025-06-03 15:28 | disposition home or self-care (01) ==
LOC: ATC 00:29
DX: M86.621 Other chronic osteomyelitis, right humerus (principal); J44.9 Chronic obstructive pulmonary disease, unspecified; Z79.1 Long term (current) use of non-steroidal anti-inflammatories (NSAID); Z79.899 Other long term (current) drug therapy
CPT/HCPCS: 96365; J0878

== ENCOUNTER 2025-06-07 08:13 | Day surgery (SDC) | payer OTHER ==
[~2025-06-07 08:13] MED LIST changes: +DAPTOmycin 1,000 MG in NS 50 ML IV SCH
[2025-06-07 15:41] VITALS: BP 148/88
== END 2025-06-07 16:00 | disposition home or self-care (01) ==
LOC: ATC 08:13
DX: M86.621 Other chronic osteomyelitis, right humerus (principal); J44.9 Chronic obstructive pulmonary disease, unspecified; Z79.1 Long term (current) use of non-steroidal anti-inflammatories (NSAID); Z79.2 Long term (current) use of antibiotics
CPT/HCPCS: 96365; J0878

== ENCOUNTER 2025-06-08 02:34 | Day surgery (SDC) | payer OTHER ==
[~2025-06-08 02:34] MED LIST changes: -DAPTOmycin 1,000 MG in NS 50 ML IV SCH
[2025-06-08] MEDS ORDERED: DAPTOmycin 1,000 MG in NS 50 ML IV SCH (06:00)
[2025-06-08 15:05] VITALS: BP 126/69
== END 2025-06-08 15:33 | disposition home or self-care (01) ==
LOC: ATC 02:34
DX: M86.621 Other chronic osteomyelitis, right humerus (principal); J44.9 Chronic obstructive pulmonary disease, unspecified; Z79.1 Long term (current) use of non-steroidal anti-inflammatories (NSAID); Z79.2 Long term (current) use of antibiotics
CPT/HCPCS: 96365; J0878

== ENCOUNTER 2025-06-09 01:29 | Day surgery (SDC) | payer OTHER ==
[2025-06-09] MEDS ORDERED: DAPTOmycin 1,000 MG in NS 50 ML IV SCH (06:00)
[2025-06-09 14:57] VITALS: BP 130/71
== END 2025-06-09 15:23 | disposition home or self-care (01) ==
LOC: ATC 01:29
DX: M86.621 Other chronic osteomyelitis, right humerus (principal); J44.9 Chronic obstructive pulmonary disease, unspecified; Z79.1 Long term (current) use of non-steroidal anti-inflammatories (NSAID); Z79.899 Other long term (current) drug therapy
CPT/HCPCS: 96365; J0878

== ENCOUNTER 2025-06-10 02:03 | Day surgery (SDC) | payer OTHER ==
[2025-06-10] MEDS ORDERED: DAPTOmycin 1,000 MG in NS 50 ML IV SCH (06:00)
[2025-06-10 15:11] VITALS: BP 137/72
== END 2025-06-10 15:32 | disposition home or self-care (01) ==
LOC: ATC 02:03
DX: M86.621 Other chronic osteomyelitis, right humerus (principal); J44.9 Chronic obstructive pulmonary disease, unspecified; Z79.1 Long term (current) use of non-steroidal anti-inflammatories (NSAID); Z79.899 Other long term (current) drug therapy
CPT/HCPCS: 96365; J0878

== ENCOUNTER 2025-06-11 04:11 | Day surgery (SDC) | payer OTHER ==
[2025-06-11] MEDS ORDERED: DAPTOmycin 1,000 MG in NS 50 ML IV SCH (06:00)
[2025-06-11 15:15] VITALS: BP 123/68
== END 2025-06-11 15:46 | disposition home or self-care (01) ==
LOC: ATC 04:11
DX: M86.621 Other chronic osteomyelitis, right humerus (principal); J44.9 Chronic obstructive pulmonary disease, unspecified; Z79.1 Long term (current) use of non-steroidal anti-inflammatories (NSAID); Z79.899 Other long term (current) drug therapy
CPT/HCPCS: 96365; J0878

== ENCOUNTER 2025-06-12 00:31 | Day surgery (SDC) | payer OTHER ==
[2025-06-12] MEDS ORDERED: DAPTOmycin 1,000 MG in NS 50 ML IV SCH (06:00)
[2025-06-12 15:20] VITALS: BP 116/92
== END 2025-06-12 15:50 | disposition home or self-care (01) ==
LOC: ATC 00:31
DX: M86.621 Other chronic osteomyelitis, right humerus (principal); J44.9 Chronic obstructive pulmonary disease, unspecified
CPT/HCPCS: 96365; J0878

== ENCOUNTER 2025-06-13 00:38 | Day surgery (SDC) | payer OTHER ==
[2025-06-13] MEDS ORDERED: DAPTOmycin 1,000 MG in NS 50 ML IV SCH (06:00)
[2025-06-13 16:06] VITALS: BP 109/67
== END 2025-06-13 16:06 | disposition home or self-care (01) ==
LOC: ATC 00:38
DX: M86.621 Other chronic osteomyelitis, right humerus (principal); J44.9 Chronic obstructive pulmonary disease, unspecified; Z79.1 Long term (current) use of non-steroidal anti-inflammatories (NSAID); Z79.899 Other long term (current) drug therapy
CPT/HCPCS: 96365; J0878

== ENCOUNTER 2025-06-17 08:00 | Day surgery (SDC) | payer OTHER ==
[~2025-06-17 08:00] MED LIST changes: +DAPTOmycin 1,000 MG in NS 50 ML IV SCH
[2025-06-17 15:37] VITALS: BP 153/93
== END 2025-06-17 23:00 | disposition home or self-care (01) ==
LOC: ATC 08:00
DX: M86.621 Other chronic osteomyelitis, right humerus (principal); Z79.1 Long term (current) use of non-steroidal anti-inflammatories (NSAID); Z79.899 Other long term (current) drug therapy
CPT/HCPCS: 96365; J0878

== ENCOUNTER 2025-06-18 02:58 | Day surgery (SDC) | payer OTHER ==
[~2025-06-18 02:58] MED LIST changes: -DAPTOmycin 1,000 MG in NS 50 ML IV SCH
[2025-06-18] MEDS ORDERED: DAPTOmycin 1,000 MG in NS 50 ML IV SCH (06:00)
[2025-06-18 15:17] VITALS: BP 173/82
== END 2025-06-18 15:32 | disposition home or self-care (01) ==
LOC: ATC 02:58
DX: M86.621 Other chronic osteomyelitis, right humerus (principal); Z79.1 Long term (current) use of non-steroidal anti-inflammatories (NSAID); Z79.899 Other long term (current) drug therapy
CPT/HCPCS: 96365; J0878

== ENCOUNTER 2025-06-19 14:49 | Day surgery (SDC) | payer OTHER ==
[~2025-06-19 14:49] MED LIST changes: +DAPTOmycin 1,000 MG in NS 50 ML IV SCH
[2025-06-19 14:53] VITALS: BP 160/89
== END 2025-06-19 15:15 | disposition home or self-care (01) ==
LOC: ATC 14:49
DX: M86.621 Other chronic osteomyelitis, right humerus (principal); Z79.1 Long term (current) use of non-steroidal anti-inflammatories (NSAID); Z79.899 Other long term (current) drug therapy
CPT/HCPCS: 96365; J0878

== ENCOUNTER 2025-06-20 01:41 | Day surgery (SDC) | payer OTHER ==
[~2025-06-20 01:41] MED LIST changes: -DAPTOmycin 1,000 MG in NS 50 ML IV SCH
[2025-06-20] MEDS ORDERED: DAPTOmycin 1,000 MG in NS 50 ML IV SCH (06:00)
[2025-06-20 15:07] VITALS: BP 123/72
== END 2025-06-20 15:32 | disposition home or self-care (01) ==
LOC: ATC 01:41
DX: M86.621 Other chronic osteomyelitis, right humerus (principal); Z79.899 Other long term (current) drug therapy
CPT/HCPCS: 96365; J0878

== ENCOUNTER 2025-06-21 02:49 | Day surgery (SDC) | payer OTHER ==
[2025-06-21] MEDS ORDERED: DAPTOmycin 1,000 MG in NS 50 ML IV SCH (06:00)
[2025-06-21 15:00] VITALS: BP 170/96
[2025-06-21 16:02] LABS: BASOPHILS ABSOLUTE AUTO 0.05 K/mm3 (0.00-0.23); BASOPHILS PERCENT AUTO 0 % (0-2); EOSINOPHILS ABSOLUTE AUTO 0.18 K/mm3 (0.00-0.68); EOSINOPHILS PERCENT AUTO 2 % (0-6); Hematocrit 31.4 % (37.0-53.0); Hemoglobin 9.2 g/dL (13.5-17.5); IMMATURE GRAN ABSOLUTE AUTO 0.05 K/mm3 (0.00-0.10); IMMATURE GRAN PERCENT AUTO 0 % (0-1); LYMPHOCYTES ABSOLUTE AUTO 2.19 K/mm3 (0.84-5.20); LYMPHOCYTES PERCENT AUTO 18 % (21-46); MONOCYTES ABSOLUTE AUTO 0.98 K/mm3 (0.16-1.47); MONOCYTES PERCENT AUTO 8 % (4-13); Mean Corpuscular HGB Conc 29.3 g/dL (31.5-36.5); Mean Corpuscular Volume 70 fL (80-100); NEUTROPHILS ABSOLUTE AUTO 8.72 K/mm3 (1.96-9.15); NEUTROPHILS PERCENT AUTO 72 % (41-73); NRBC ABSOLUTE 0.00 K/mm3 (0.00-0.02); NRBC Auto 0.0 /100 WBC (0.0-0.2); Platelet Count 442 K/mm3 (150-400); RDW Coefficient Variation 19.4 % (11.7-14.2); RDW Standard Deviation 46.9 fL (35.1-46.3)
[2025-06-21 16:30] LABS: Alanine Aminotransfer (ALT/SGP 18.0 U/L (12-78); Albumin, Blood 3.7 g/dL (3.4-5.0); Albumin/Globulin Ratio 0.8 (0.8-1.8); Anion Gap 12.0 mmol/L (3-11); Aspartate Aminotrans (AST/SGOT 17.0 U/L (12-37); Bilirubin, Total 0.2 mg/dL (0.1-1.0); Blood Urea Nitrogen 15.0 mg/dL (8-24); C-REACTIVE PROTEIN, EXT RANGE 1.72 mg/dL (0.000-0.300); CO2, Blood 23.0 mmol/L (21-32); Calcium, Blood 9.1 mg/dL (8.5-10.1); Chloride, Blood 105.0 mmol/L (98-108); Creatinine, Blood 0.81 mg/dL (0.60-1.20); Globulin, Blood 4.4 g/dL (2.2-4.0); Glucose, Blood 98.0 mg/dL (70-99); Potassium, Blood 3.5 mmol/L (3.5-5.5); Sodium, Blood 136.0 mmol/L (136-145); Total Protein, Blood 8.1 g/dL (6.4-8.2)
== END 2025-06-21 15:28 | disposition home or self-care (01) ==
LOC: ATC 02:49
PROVIDERS: Internal Medicine Infectious Disease
DX: M86.621 Other chronic osteomyelitis, right humerus (principal); Z79.1 Long term (current) use of non-steroidal anti-inflammatories (NSAID); Z79.2 Long term (current) use of antibiotics
CPT/HCPCS: 80053; 82550; 85025; 86140; 96365; J0878

== ENCOUNTER 2025-06-22 00:40 | Day surgery (SDC) | payer OTHER ==
[2025-06-22] MEDS ORDERED: DAPTOmycin 1,000 MG in NS 50 ML IV SCH (06:00)
[2025-06-22 15:27] VITALS: BP 133/72
[2025-06-22 16:32] LABS: Ferritin, Serum 17.0 ng/mL (26-388); Total Iron Binding Capacity 453.0 ug/dL (250-450)
== END 2025-06-22 15:55 | disposition home or self-care (01) ==
LOC: ATC 00:40
PROVIDERS: Internal Medicine Infectious Disease
DX: M86.621 Other chronic osteomyelitis, right humerus (principal); Z79.1 Long term (current) use of non-steroidal anti-inflammatories (NSAID); Z79.2 Long term (current) use of antibiotics
CPT/HCPCS: 82728; 83540; 83550; 84466; 96365; J0878

== ENCOUNTER 2025-06-23 03:40 | Day surgery (SDC) | payer OTHER ==
[2025-06-23] MEDS ORDERED: DAPTOmycin 1,000 MG in NS 50 ML IV SCH (06:00)
[2025-06-23 15:34] VITALS: BP 152/67
== END 2025-06-23 16:00 | disposition home or self-care (01) ==
LOC: ATC 03:40
DX: M86.621 Other chronic osteomyelitis, right humerus (principal)
CPT/HCPCS: 96365; J0878

== ENCOUNTER 2025-06-24 00:43 | Day surgery (SDC) | payer OTHER ==
[2025-06-24] MEDS ORDERED: DAPTOmycin 1,000 MG in NS 50 ML IV SCH (06:00)
[2025-06-24 15:25] VITALS: BP 156/85
== END 2025-06-24 15:36 | disposition home or self-care (01) ==
LOC: ATC 00:43
DX: M86.621 Other chronic osteomyelitis, right humerus (principal); Z79.1 Long term (current) use of non-steroidal anti-inflammatories (NSAID); Z79.899 Other long term (current) drug therapy
CPT/HCPCS: 96365; J0878

== ENCOUNTER 2025-06-25 00:55 | Day surgery (SDC) | payer OTHER ==
[2025-06-25] MEDS ORDERED: DAPTOmycin 1,000 MG in NS 50 ML IV SCH (06:00)
[2025-06-25 15:23] VITALS: BP 144/76
== END 2025-06-25 15:43 | disposition home or self-care (01) ==
LOC: ATC 00:55
DX: M86.621 Other chronic osteomyelitis, right humerus (principal); Z79.1 Long term (current) use of non-steroidal anti-inflammatories (NSAID); Z79.2 Long term (current) use of antibiotics
CPT/HCPCS: 96365; J0878

== ENCOUNTER 2025-06-26 01:38 | Day surgery (SDC) | payer OTHER ==
[2025-06-26] MEDS ORDERED: DAPTOmycin 1,000 MG in NS 50 ML IV SCH (06:00)
[2025-06-26 15:46] VITALS: BP 138/98
--- NOTE | 2025-06-26 17:17 | NUR ---
PT REPORTS THAT HE WILL NOT BE IN TOMORROW FOR APPT HE HAS TO GO TO [facility] TO HAVE HIS ARM CHECKED. PT WILL RETURN FOR ANTIBIOTICS ON Thursday06/28/25.
== END 2025-06-26 16:09 | disposition home or self-care (01) ==
LOC: ATC 01:38
DX: M86.621 Other chronic osteomyelitis, right humerus (principal)
CPT/HCPCS: 96365; J0878

== ENCOUNTER 2025-06-28 02:27 | Day surgery (SDC) | payer OTHER ==
[2025-06-28] MEDS ORDERED: DAPTOmycin 1,000 MG in NS 50 ML IV SCH (06:00)
[2025-06-28 15:25] VITALS: BP 118/96
[2025-06-28 17:55] LABS: BASOPHILS ABSOLUTE AUTO 0.06 K/mm3 (0.00-0.23); BASOPHILS PERCENT AUTO 1 % (0-2); EOSINOPHILS ABSOLUTE AUTO 0.17 K/mm3 (0.00-0.68); EOSINOPHILS PERCENT AUTO 2 % (0-6); Hematocrit 32.6 % (37.0-53.0); Hemoglobin 9.4 g/dL (13.5-17.5); IMMATURE GRAN ABSOLUTE AUTO 0.06 K/mm3 (0.00-0.10); IMMATURE GRAN PERCENT AUTO 1 % (0-1); LYMPHOCYTES ABSOLUTE AUTO 2.38 K/mm3 (0.84-5.20); LYMPHOCYTES PERCENT AUTO 32 % (21-46); MONOCYTES ABSOLUTE AUTO 0.79 K/mm3 (0.16-1.47); MONOCYTES PERCENT AUTO 11 % (4-13); Mean Corpuscular HGB Conc 28.8 g/dL (31.5-36.5); Mean Corpuscular Volume 72 fL (80-100); NEUTROPHILS ABSOLUTE AUTO 4.03 K/mm3 (1.96-9.15); NEUTROPHILS PERCENT AUTO 54 % (41-73); NRBC ABSOLUTE 0.00 K/mm3 (0.00-0.02); NRBC Auto 0.0 /100 WBC (0.0-0.2); Platelet Count 524 K/mm3 (150-400); RDW Coefficient Variation 19.3 % (11.7-14.2); RDW Standard Deviation 48.9 fL (35.1-46.3)
[2025-06-28 18:09] LABS: C-REACTIVE PROTEIN, EXT RANGE 1.73 mg/dL (0.000-0.300)
[2025-06-28 18:12] LABS: Alanine Aminotransfer (ALT/SGP 19.0 U/L (12-78); Albumin, Blood 3.6 g/dL (3.4-5.0); Albumin/Globulin Ratio 0.8 (0.8-1.8); Anion Gap 7.0 mmol/L (3-11); Aspartate Aminotrans (AST/SGOT 15.0 U/L (12-37); Bilirubin, Total 0.2 mg/dL (0.1-1.0); Blood Urea Nitrogen 8.0 mg/dL (8-24); CO2, Blood 28.0 mmol/L (21-32); Calcium, Blood 9.1 mg/dL (8.5-10.1); Chloride, Blood 103.0 mmol/L (98-108); Creatinine, Blood 0.56 mg/dL (0.60-1.20); Globulin, Blood 4.4 g/dL (2.2-4.0); Glucose, Blood 101.0 mg/dL (70-99); Potassium, Blood 3.7 mmol/L (3.5-5.5); Sodium, Blood 134.0 mmol/L (136-145); Total Protein, Blood 8.0 g/dL (6.4-8.2)
== END 2025-06-28 16:06 | disposition home or self-care (01) ==
LOC: ATC 02:27
PROVIDERS: Internal Medicine Infectious Disease
DX: M86.621 Other chronic osteomyelitis, right humerus (principal)
CPT/HCPCS: 80053; 82550; 85025; 86140; 96365; J0878

== ENCOUNTER 2025-06-30 09:38 | Day surgery (SDC) | payer OTHER ==
[~2025-06-30 09:38] MED LIST changes: +DAPTOmycin 1,000 MG in NS 50 ML IV SCH
[2025-06-30 15:05] VITALS: BP 152/80
== END 2025-06-30 15:26 | disposition home or self-care (01) ==
LOC: ATC 09:38
DX: M86.621 Other chronic osteomyelitis, right humerus (principal); Z79.899 Other long term (current) drug therapy
CPT/HCPCS: 96365; J0878

== ENCOUNTER 2025-07-01 00:42 | Day surgery (SDC) | payer OTHER ==
[~2025-07-01 00:42] MED LIST changes: -DAPTOmycin 1,000 MG in NS 50 ML IV SCH
[2025-07-01] MEDS ORDERED: DAPTOmycin 1,000 MG in NS 50 ML IV SCH (06:00)
[2025-07-01 14:54] VITALS: BP 159/95
== END 2025-07-01 15:19 | disposition home or self-care (01) ==
LOC: ATC 00:42
DX: M86.621 Other chronic osteomyelitis, right humerus (principal); Z79.899 Other long term (current) drug therapy
CPT/HCPCS: 96365; J0878

== ENCOUNTER 2025-07-02 00:14 | Day surgery (SDC) | payer OTHER ==
[2025-07-02] MEDS ORDERED: DAPTOmycin 1,000 MG in NS 50 ML IV SCH (06:00)
[2025-07-02 15:21] VITALS: BP 163/82
== END 2025-07-02 15:48 | disposition home or self-care (01) ==
LOC: ATC 00:14
DX: M86.621 Other chronic osteomyelitis, right humerus (principal)
CPT/HCPCS: 96365; J0878

== ENCOUNTER 2025-07-03 02:21 | Day surgery (SDC) | payer OTHER ==
[2025-07-03] MEDS ORDERED: DAPTOmycin 1,000 MG in NS 50 ML IV SCH (06:00)
[2025-07-03 15:05] VITALS: BP 148/73
--- NOTE | 2025-07-03 16:01 | NUR ---
JAYRO CORTEZ INFUSED PT AT A RATE OF 420ML/HR. BASED ON EMAR, INFUSION WAS GIVEN OVER 13 MIN. PT HAS BEEN RECEIVING INFUSION OVER 20 MIN AND HAS TOLERATED WELL. PT TOLERATED 13 MIN INFUSION WELL TODAY WELL. CALLED PHARMACIST THA AND DISCUSSED THE RAPID INFUSION. PHARMACIST STATES THAT IT IS A MED THAT CAN BE PUSHED OVER 2MIN, NO NEED TO MONITOR PT EXTRA FOR TODAY'S RAPID INFUSION. PT INFORMED AND VERBALIZED UNDERTANDING AND DISCHARGED IN STABLE CONDITION.
== END 2025-07-03 15:24 | disposition home or self-care (01) ==
LOC: ATC 02:21
DX: M86.9 Osteomyelitis, unspecified (principal); Z79.899 Other long term (current) drug therapy; Z88.1 Allergy status to other antibiotic agents
CPT/HCPCS: J0878

== ENCOUNTER 2025-07-05 02:42 | Day surgery (SDC) | payer OTHER ==
[2025-07-05] MEDS ORDERED: DAPTOmycin 1,000 MG in NS 50 ML IV SCH (06:00)
[2025-07-05 15:51] VITALS: BP 145/79
[2025-07-05 16:59] LABS: BASOPHILS ABSOLUTE AUTO 0.05 K/mm3 (0.00-0.23); BASOPHILS PERCENT AUTO 1 % (0-2); EOSINOPHILS ABSOLUTE AUTO 0.21 K/mm3 (0.00-0.68); EOSINOPHILS PERCENT AUTO 2 % (0-6); Hematocrit 33.0 % (37.0-53.0); Hemoglobin 9.5 g/dL (13.5-17.5); IMMATURE GRAN ABSOLUTE AUTO 0.03 K/mm3 (0.00-0.10); IMMATURE GRAN PERCENT AUTO 0 % (0-1); LYMPHOCYTES ABSOLUTE AUTO 2.68 K/mm3 (0.84-5.20); LYMPHOCYTES PERCENT AUTO 28 % (21-46); MONOCYTES ABSOLUTE AUTO 0.85 K/mm3 (0.16-1.47); MONOCYTES PERCENT AUTO 9 % (4-13); Mean Corpuscular HGB Conc 28.8 g/dL (31.5-36.5); Mean Corpuscular Volume 71 fL (80-100); NEUTROPHILS ABSOLUTE AUTO 5.92 K/mm3 (1.96-9.15); NEUTROPHILS PERCENT AUTO 61 % (41-73); NRBC ABSOLUTE 0.00 K/mm3 (0.00-0.02); NRBC Auto 0.0 /100 WBC (0.0-0.2); Platelet Count 514 K/mm3 (150-400); RDW Coefficient Variation 18.7 % (11.7-14.2); RDW Standard Deviation 47.9 fL (35.1-46.3)
[2025-07-05 17:30] LABS: C-REACTIVE PROTEIN, EXT RANGE 0.501 mg/dL (0.000-0.300)
[2025-07-05 17:36] LABS: Alanine Aminotransfer (ALT/SGP 19.0 U/L (12-78); Albumin, Blood 3.5 g/dL (3.4-5.0); Albumin/Globulin Ratio 0.8 (0.8-1.8); Anion Gap 8.0 mmol/L (3-11); Aspartate Aminotrans (AST/SGOT 14.0 U/L (12-37); Bilirubin, Total 0.2 mg/dL (0.1-1.0); Blood Urea Nitrogen 9.0 mg/dL (8-24); CO2, Blood 26.0 mmol/L (21-32); Calcium, Blood 8.6 mg/dL (8.5-10.1); Chloride, Blood 106.0 mmol/L (98-108); Creatinine, Blood 0.87 mg/dL (0.60-1.20); Globulin, Blood 4.3 g/dL (2.2-4.0); Glucose, Blood 114.0 mg/dL (70-99); Potassium, Blood 3.6 mmol/L (3.5-5.5); Sodium, Blood 136.0 mmol/L (136-145); Total Protein, Blood 7.8 g/dL (6.4-8.2)
--- NOTE | 2025-07-05 18:08 | NUR ---
Lab results from today faxed to Dr. Clark's office.
== END 2025-07-05 16:15 | disposition home or self-care (01) ==
LOC: ATC 02:42
PROVIDERS: Internal Medicine Infectious Disease
DX: M86.621 Other chronic osteomyelitis, right humerus (principal); Z79.1 Long term (current) use of non-steroidal anti-inflammatories (NSAID); Z79.2 Long term (current) use of antibiotics
CPT/HCPCS: 80053; 82550; 85025; 86140; 96365; J0878

== ENCOUNTER 2025-07-06 00:03 | Day surgery (SDC) | payer OTHER ==
[2025-07-06] MEDS ORDERED: DAPTOmycin 1,000 MG in NS 50 ML IV SCH (06:00)
[2025-07-06 14:47] VITALS: BP 124/91
== END 2025-07-06 15:17 | disposition home or self-care (01) ==
LOC: ATC 00:03
DX: M86.621 Other chronic osteomyelitis, right humerus (principal); Z79.1 Long term (current) use of non-steroidal anti-inflammatories (NSAID); Z79.2 Long term (current) use of antibiotics
CPT/HCPCS: 96365; J0878

== ENCOUNTER 2025-07-07 00:34 | Day surgery (SDC) | payer OTHER ==
[2025-07-07] MEDS ORDERED: DAPTOmycin 1,000 MG in NS 50 ML IV SCH (06:00)
[2025-07-07 15:27] VITALS: BP 116/92
== END 2025-07-07 15:54 | disposition home or self-care (01) ==
LOC: ATC 00:34
DX: M86.621 Other chronic osteomyelitis, right humerus (principal)
CPT/HCPCS: 96365; J0878

== ENCOUNTER 2025-07-09 01:11 | Day surgery (SDC) | payer OTHER ==
[2025-07-09] MEDS ORDERED: DAPTOmycin 1,000 MG in NS 50 ML IV SCH (06:00)
[2025-07-09 15:12] VITALS: BP 144/112
== END 2025-07-09 15:28 | disposition home or self-care (01) ==
LOC: ATC 01:11
DX: M86.621 Other chronic osteomyelitis, right humerus (principal)
CPT/HCPCS: 96365; J0878

== ENCOUNTER 2025-07-12 03:51 | Day surgery (SDC) | payer OTHER ==
[2025-07-12] MEDS ORDERED: DAPTOmycin 1,000 MG in NS 50 ML IV SCH (06:00)
[2025-07-12 14:58] VITALS: BP 152/84
[2025-07-12 15:53] LABS: BASOPHILS ABSOLUTE AUTO 0.06 K/mm3 (0.00-0.23); BASOPHILS PERCENT AUTO 1 % (0-2); EOSINOPHILS ABSOLUTE AUTO 0.22 K/mm3 (0.00-0.68); EOSINOPHILS PERCENT AUTO 2 % (0-6); Hematocrit 30.7 % (37.0-53.0); Hemoglobin 8.9 g/dL (13.5-17.5); IMMATURE GRAN ABSOLUTE AUTO 0.03 K/mm3 (0.00-0.10); IMMATURE GRAN PERCENT AUTO 0 % (0-1); LYMPHOCYTES ABSOLUTE AUTO 2.48 K/mm3 (0.84-5.20); LYMPHOCYTES PERCENT AUTO 26 % (21-46); MONOCYTES ABSOLUTE AUTO 1.08 K/mm3 (0.16-1.47); MONOCYTES PERCENT AUTO 12 % (4-13); Mean Corpuscular HGB Conc 29.0 g/dL (31.5-36.5); Mean Corpuscular Volume 68 fL (80-100); NEUTROPHILS ABSOLUTE AUTO 5.55 K/mm3 (1.96-9.15); NEUTROPHILS PERCENT AUTO 59 % (41-73); NRBC ABSOLUTE 0.00 K/mm3 (0.00-0.02); NRBC Auto 0.0 /100 WBC (0.0-0.2); Platelet Count 386 K/mm3 (150-400); RDW Coefficient Variation 17.8 % (11.7-14.2); RDW Standard Deviation 43.0 fL (35.1-46.3)
[2025-07-12 16:19] LABS: C-REACTIVE PROTEIN, EXT RANGE 2.47 mg/dL (0.000-0.300)
[2025-07-12 16:23] LABS: Alanine Aminotransfer (ALT/SGP 21.0 U/L (12-78); Albumin, Blood 3.5 g/dL (3.4-5.0); Albumin/Globulin Ratio 0.8 (0.8-1.8); Anion Gap 6.0 mmol/L (3-11); Aspartate Aminotrans (AST/SGOT 20.0 U/L (12-37); Bilirubin, Total 0.3 mg/dL (0.1-1.0); Blood Urea Nitrogen 13.0 mg/dL (8-24); CO2, Blood 27.0 mmol/L (21-32); Calcium, Blood 8.7 mg/dL (8.5-10.1); Chloride, Blood 103.0 mmol/L (98-108); Creatinine, Blood 1.0 mg/dL (0.60-1.20); Globulin, Blood 4.5 g/dL (2.2-4.0); Glucose, Blood 89.0 mg/dL (70-99); Potassium, Blood 3.6 mmol/L (3.5-5.5); Sodium, Blood 132.0 mmol/L (136-145); Total Protein, Blood 8.0 g/dL (6.4-8.2)
== END 2025-07-12 15:16 | disposition home or self-care (01) ==
LOC: ATC 03:51
PROVIDERS: Internal Medicine Infectious Disease
DX: M86.621 Other chronic osteomyelitis, right humerus (principal); Z79.2 Long term (current) use of antibiotics; Z88.8 Allergy status to other drugs, medicaments and biological substances
CPT/HCPCS: 80053; 82550; 85025; 86140; 96365; J0878

== ENCOUNTER 2025-07-13 02:01 | Day surgery (SDC) | payer OTHER ==
[2025-07-13] MEDS ORDERED: DAPTOmycin 1,000 MG in NS 50 ML IV SCH (06:00)
[2025-07-13 15:01] VITALS: BP 139/69
== END 2025-07-13 15:20 | disposition home or self-care (01) ==
LOC: ATC 02:01
DX: M86.621 Other chronic osteomyelitis, right humerus (principal)
CPT/HCPCS: 96365; J0878

== ENCOUNTER 2025-07-14 00:17 | Day surgery (SDC) | payer OTHER ==
[2025-07-14] MEDS ORDERED: DAPTOmycin 1,000 MG in NS 50 ML IV SCH (06:00)
[2025-07-14 15:03] VITALS: BP 150/83
== END 2025-07-14 15:27 | disposition home or self-care (01) ==
LOC: ATC 00:17
DX: M86.621 Other chronic osteomyelitis, right humerus (principal); Z79.899 Other long term (current) drug therapy; Z88.8 Allergy status to other drugs, medicaments and biological substances
CPT/HCPCS: 96365; J0878

== ENCOUNTER 2025-07-17 01:17 | Day surgery (SDC) | payer OTHER ==
[2025-07-17] MEDS ORDERED: DAPTOmycin 1,000 MG in NS 50 ML IV SCH (06:00)
[2025-07-17 15:47] VITALS: BP 141/82
== END 2025-07-17 16:07 | disposition home or self-care (01) ==
LOC: ATC 01:17
DX: M86.621 Other chronic osteomyelitis, right humerus (principal)
CPT/HCPCS: 96365; J0878

== ENCOUNTER 2025-07-19 01:19 | Day surgery (SDC) | payer OTHER ==
[2025-07-19] MEDS ORDERED: DAPTOmycin 1,000 MG in NS 50 ML IV SCH (06:00)
[2025-07-19 15:40] VITALS: BP 136/74
[2025-07-19 16:48] LABS: BASOPHILS ABSOLUTE AUTO 0.05 K/mm3 (0.00-0.23); BASOPHILS PERCENT AUTO 1 % (0-2); EOSINOPHILS ABSOLUTE AUTO 0.23 K/mm3 (0.00-0.68); EOSINOPHILS PERCENT AUTO 2 % (0-6); Hematocrit 30.9 % (37.0-53.0); Hemoglobin 8.9 g/dL (13.5-17.5); IMMATURE GRAN ABSOLUTE AUTO 0.03 K/mm3 (0.00-0.10); IMMATURE GRAN PERCENT AUTO 0 % (0-1); LYMPHOCYTES ABSOLUTE AUTO 2.93 K/mm3 (0.84-5.20); LYMPHOCYTES PERCENT AUTO 31 % (21-46); MONOCYTES ABSOLUTE AUTO 0.99 K/mm3 (0.16-1.47); MONOCYTES PERCENT AUTO 10 % (4-13); Mean Corpuscular HGB Conc 28.8 g/dL (31.5-36.5); Mean Corpuscular Volume 70 fL (80-100); NEUTROPHILS ABSOLUTE AUTO 5.30 K/mm3 (1.96-9.15); NEUTROPHILS PERCENT AUTO 56 % (41-73); NRBC ABSOLUTE 0.00 K/mm3 (0.00-0.02); NRBC Auto 0.0 /100 WBC (0.0-0.2); Platelet Count 383 K/mm3 (150-400); RDW Coefficient Variation 17.8 % (11.7-14.2); RDW Standard Deviation 44.7 fL (35.1-46.3)
[2025-07-19 17:05] LABS: C-REACTIVE PROTEIN, EXT RANGE 5.81 mg/dL (0.000-0.300)
[2025-07-19 17:12] LABS: Alanine Aminotransfer (ALT/SGP 26.0 U/L (12-78); Albumin, Blood 3.7 g/dL (3.4-5.0); Albumin/Globulin Ratio 0.9 (0.8-1.8); Anion Gap 8.0 mmol/L (3-11); Aspartate Aminotrans (AST/SGOT 22.0 U/L (12-37); Bilirubin, Total 0.3 mg/dL (0.1-1.0); Blood Urea Nitrogen 9.0 mg/dL (8-24); CO2, Blood 26.0 mmol/L (21-32); Calcium, Blood 8.9 mg/dL (8.5-10.1); Chloride, Blood 106.0 mmol/L (98-108); Creatinine, Blood 0.9 mg/dL (0.60-1.20); Globulin, Blood 4.1 g/dL (2.2-4.0); Glucose, Blood 90.0 mg/dL (70-99); Potassium, Blood 3.3 mmol/L (3.5-5.5); Sodium, Blood 137.0 mmol/L (136-145); Total Protein, Blood 7.8 g/dL (6.4-8.2)
== END 2025-07-19 16:05 | disposition home or self-care (01) ==
LOC: ATC 01:19
PROVIDERS: Internal Medicine Infectious Disease
DX: M86.621 Other chronic osteomyelitis, right humerus (principal)
CPT/HCPCS: 80053; 82550; 85025; 86140; 96365; J0878

== ENCOUNTER 2025-07-20 00:56 | Day surgery (SDC) | payer OTHER ==
[2025-07-20] MEDS ORDERED: DAPTOmycin 1,000 MG in NS 50 ML IV SCH (06:00)
[2025-07-20 16:15] VITALS: BP 157/78
== END 2025-07-20 16:36 | disposition home or self-care (01) ==
LOC: ATC 00:56
DX: M86.621 Other chronic osteomyelitis, right humerus (principal); Z79.899 Other long term (current) drug therapy
CPT/HCPCS: 96365; J0878

== ENCOUNTER 2025-07-21 08:24 | Day surgery (SDC) | payer OTHER ==
[~2025-07-21 08:24] MED LIST changes: +DAPTOmycin 1,000 MG in NS 50 ML IV SCH
[2025-07-21 16:00] VITALS: BP 151/95
== END 2025-07-21 16:24 | disposition home or self-care (01) ==
LOC: ATC 08:24
DX: M86.621 Other chronic osteomyelitis, right humerus (principal)
CPT/HCPCS: 96365; J0878

== ENCOUNTER 2025-07-22 00:32 | Day surgery (SDC) | payer OTHER ==
[~2025-07-22 00:32] MED LIST changes: -DAPTOmycin 1,000 MG in NS 50 ML IV SCH
[2025-07-22] MEDS ORDERED: DAPTOmycin 1,000 MG in NS 50 ML IV SCH (06:00)
[2025-07-22 14:48] VITALS: BP 121/73
== END 2025-07-22 15:20 | disposition home or self-care (01) ==
LOC: ATC 00:32
DX: M86.621 Other chronic osteomyelitis, right humerus (principal); Z79.1 Long term (current) use of non-steroidal anti-inflammatories (NSAID); Z79.2 Long term (current) use of antibiotics
CPT/HCPCS: 96365; J0878

== ENCOUNTER 2025-07-25 01:18 | Day surgery (SDC) | payer OTHER ==
[2025-07-25] MEDS ORDERED: DAPTOmycin 1,000 MG in NS 50 ML IV SCH (06:00)
[2025-07-25 15:46] VITALS: BP 132/115
== END 2025-07-25 16:41 | disposition home or self-care (01) ==
LOC: ATC 01:18
DX: M86.621 Other chronic osteomyelitis, right humerus (principal)
CPT/HCPCS: J0878

== ENCOUNTER 2025-07-26 01:27 | Day surgery (SDC) | payer OTHER ==
[2025-07-26] MEDS ORDERED: DAPTOmycin 1,000 MG in NS 50 ML IV SCH (06:00)
[2025-07-26 15:48] VITALS: BP 155/74
[2025-07-26 16:52] LABS: BASOPHILS ABSOLUTE AUTO 0.04 K/mm3 (0.00-0.23); BASOPHILS PERCENT AUTO 1 % (0-2); EOSINOPHILS ABSOLUTE AUTO 0.10 K/mm3 (0.00-0.68); EOSINOPHILS PERCENT AUTO 2 % (0-6); Hematocrit 31.7 % (37.0-53.0); Hemoglobin 9.1 g/dL (13.5-17.5); IMMATURE GRAN ABSOLUTE AUTO 0.04 K/mm3 (0.00-0.10); IMMATURE GRAN PERCENT AUTO 1 % (0-1); LYMPHOCYTES ABSOLUTE AUTO 2.27 K/mm3 (0.84-5.20); LYMPHOCYTES PERCENT AUTO 36 % (21-46); MONOCYTES ABSOLUTE AUTO 0.59 K/mm3 (0.16-1.47); MONOCYTES PERCENT AUTO 9 % (4-13); Mean Corpuscular HGB Conc 28.7 g/dL (31.5-36.5); Mean Corpuscular Volume 70 fL (80-100); NEUTROPHILS ABSOLUTE AUTO 3.35 K/mm3 (1.96-9.15); NEUTROPHILS PERCENT AUTO 53 % (41-73); NRBC ABSOLUTE 0.00 K/mm3 (0.00-0.02); NRBC Auto 0.0 /100 WBC (0.0-0.2); Platelet Count 452 K/mm3 (150-400); RDW Coefficient Variation 19.1 % (11.7-14.2); RDW Standard Deviation 44.7 fL (35.1-46.3)
[2025-07-26 17:06] LABS: C-REACTIVE PROTEIN, EXT RANGE 0.589 mg/dL (0.000-0.300)
[2025-07-26 17:14] LABS: Alanine Aminotransfer (ALT/SGP 26.0 U/L (12-78); Albumin, Blood 3.6 g/dL (3.4-5.0); Albumin/Globulin Ratio 0.8 (0.8-1.8); Anion Gap 9.0 mmol/L (3-11); Aspartate Aminotrans (AST/SGOT 19.0 U/L (12-37); Bilirubin, Total 0.2 mg/dL (0.1-1.0); Blood Urea Nitrogen 18.0 mg/dL (8-24); CO2, Blood 27.0 mmol/L (21-32); Calcium, Blood 8.9 mg/dL (8.5-10.1); Chloride, Blood 103.0 mmol/L (98-108); Creatinine, Blood 0.87 mg/dL (0.60-1.20); Globulin, Blood 4.3 g/dL (2.2-4.0); Glucose, Blood 91.0 mg/dL (70-99); Potassium, Blood 3.9 mmol/L (3.5-5.5); Sodium, Blood 135.0 mmol/L (136-145); Total Protein, Blood 7.9 g/dL (6.4-8.2)
== END 2025-07-26 16:19 | disposition home or self-care (01) ==
LOC: ATC 01:27
PROVIDERS: Internal Medicine Infectious Disease
DX: M86.621 Other chronic osteomyelitis, right humerus (principal)
CPT/HCPCS: 80053; 82550; 85025; 86140; 96365; J0878

== ENCOUNTER 2025-07-28 01:29 | Day surgery (SDC) | payer OTHER ==
[2025-07-28] MEDS ORDERED: DAPTOmycin 1,000 MG in NS 50 ML IV SCH (06:00)
[2025-07-28 15:15] VITALS: BP 154/76
== END 2025-07-28 16:19 | disposition home or self-care (01) ==
LOC: ATC 01:29
DX: M86.621 Other chronic osteomyelitis, right humerus (principal)
CPT/HCPCS: 96365; J0878

== ENCOUNTER 2025-07-29 01:09 | Day surgery (SDC) | payer OTHER ==
[2025-07-29] MEDS ORDERED: DAPTOmycin 1,000 MG in NS 50 ML IV SCH (06:00)
[2025-07-29 15:13] VITALS: BP 182/101
[2025-07-29 16:14] VITALS: BP 148/96
== END 2025-07-29 16:14 | disposition home or self-care (01) ==
LOC: ATC 01:09
DX: M86.621 Other chronic osteomyelitis, right humerus (principal); Z79.899 Other long term (current) drug therapy
CPT/HCPCS: 96365; J0878

== ENCOUNTER 2025-07-30 08:49 | Day surgery (SDC) | payer OTHER ==
[~2025-07-30 08:49] MED LIST changes: +DAPTOmycin 1,000 MG in NS 50 ML IV SCH
[2025-07-30 15:23] VITALS: BP 179/90
== END 2025-07-30 16:14 | disposition home or self-care (01) ==
LOC: ATC 08:49
DX: M86.621 Other chronic osteomyelitis, right humerus (principal); Z79.1 Long term (current) use of non-steroidal anti-inflammatories (NSAID); Z79.2 Long term (current) use of antibiotics
CPT/HCPCS: 96365; J0878

== ENCOUNTER 2025-07-31 00:22 | Day surgery (SDC) | payer OTHER ==
[~2025-07-31 00:22] MED LIST changes: -DAPTOmycin 1,000 MG in NS 50 ML IV SCH
[2025-07-31] MEDS ORDERED: DAPTOmycin 1,000 MG in NS 50 ML IV SCH (06:00)
[2025-07-31 15:30] VITALS: BP 152/67
== END 2025-07-31 15:45 | disposition home or self-care (01) ==
LOC: ATC 00:22
DX: M86.621 Other chronic osteomyelitis, right humerus (principal)
CPT/HCPCS: 96365; J0878

== ENCOUNTER 2025-08-01 01:39 | Day surgery (SDC) | payer OTHER ==
[2025-08-01] MEDS ORDERED: DAPTOmycin 1,000 MG in NS 50 ML IV SCH (06:00)
[2025-08-01 17:22] VITALS: BP 173/86
[2025-08-01 17:57] VITALS: BP 158/79
== END 2025-08-01 17:57 | disposition home or self-care (01) ==
LOC: ATC 01:39
DX: M86.621 Other chronic osteomyelitis, right humerus (principal); Z88.8 Allergy status to other drugs, medicaments and biological substances
CPT/HCPCS: 96365; J0878

== ENCOUNTER 2025-08-02 00:56 | Day surgery (SDC) | payer OTHER ==
[2025-08-02] MEDS ORDERED: DAPTOmycin 1,000 MG in NS 50 ML IV SCH (06:00)
[2025-08-02 14:52] VITALS: BP 131/83
[2025-08-02 15:56] LABS: BASOPHILS ABSOLUTE AUTO 0.07 K/mm3 (0.00-0.23); BASOPHILS PERCENT AUTO 1 % (0-2); EOSINOPHILS ABSOLUTE AUTO 0.18 K/mm3 (0.00-0.68); EOSINOPHILS PERCENT AUTO 3 % (0-6); Hematocrit 36.6 % (37.0-53.0); Hemoglobin 10.1 g/dL (13.5-17.5); IMMATURE GRAN ABSOLUTE AUTO 0.06 K/mm3 (0.00-0.10); IMMATURE GRAN PERCENT AUTO 1 % (0-1); LYMPHOCYTES ABSOLUTE AUTO 2.21 K/mm3 (0.84-5.20); LYMPHOCYTES PERCENT AUTO 32 % (21-46); MONOCYTES ABSOLUTE AUTO 0.65 K/mm3 (0.16-1.47); MONOCYTES PERCENT AUTO 9 % (4-13); Mean Corpuscular HGB Conc 27.6 g/dL (31.5-36.5); Mean Corpuscular Volume 73 fL (80-100); NEUTROPHILS ABSOLUTE AUTO 3.77 K/mm3 (1.96-9.15); NEUTROPHILS PERCENT AUTO 54 % (41-73); NRBC ABSOLUTE 0.00 K/mm3 (0.00-0.02); NRBC Auto 0.0 /100 WBC (0.0-0.2); Platelet Count 371 K/mm3 (150-400); RDW Coefficient Variation 21.9 % (11.7-14.2); RDW Standard Deviation 53.0 fL (35.1-46.3)
[2025-08-02 16:14] LABS: C-REACTIVE PROTEIN, EXT RANGE 0.671 mg/dL (0.000-0.300)
[2025-08-02 16:18] LABS: Alanine Aminotransfer (ALT/SGP 27.0 U/L (12-78); Albumin, Blood 3.5 g/dL (3.4-5.0); Albumin/Globulin Ratio 0.8 (0.8-1.8); Anion Gap 9.0 mmol/L (3-11); Aspartate Aminotrans (AST/SGOT 21.0 U/L (12-37); Bilirubin, Total 0.3 mg/dL (0.1-1.0); Blood Urea Nitrogen 15.0 mg/dL (8-24); CO2, Blood 28.0 mmol/L (21-32); Calcium, Blood 8.9 mg/dL (8.5-10.1); Chloride, Blood 102.0 mmol/L (98-108); Creatinine, Blood 0.8 mg/dL (0.60-1.20); Globulin, Blood 4.3 g/dL (2.2-4.0); Glucose, Blood 117.0 mg/dL (70-99); Potassium, Blood 3.7 mmol/L (3.5-5.5); Sodium, Blood 135.0 mmol/L (136-145); Total Protein, Blood 7.8 g/dL (6.4-8.2)
== END 2025-08-02 15:18 | disposition home or self-care (01) ==
LOC: ATC 00:56
PROVIDERS: Internal Medicine Infectious Disease
DX: M86.621 Other chronic osteomyelitis, right humerus (principal)
CPT/HCPCS: 80053; 82550; 85025; 86140; 96365; J0878

== ENCOUNTER 2025-08-03 03:19 | Day surgery (SDC) | payer OTHER ==
[2025-08-03] MEDS ORDERED: DAPTOmycin 1,000 MG in NS 50 ML IV SCH (06:00)
[2025-08-03 15:42] VITALS: BP 135/89
== END 2025-08-03 16:04 | disposition home or self-care (01) ==
LOC: ATC 03:19
DX: M86.621 Other chronic osteomyelitis, right humerus (principal); Z79.1 Long term (current) use of non-steroidal anti-inflammatories (NSAID); Z79.2 Long term (current) use of antibiotics
CPT/HCPCS: 96365; J0878

== ENCOUNTER 2025-08-04 08:24 | Day surgery (SDC) | payer OTHER ==
[~2025-08-04 08:24] MED LIST changes: +DAPTOmycin 1,000 MG in NS 50 ML IV SCH
[2025-08-04 15:06] VITALS: BP 129/67
== END 2025-08-04 15:27 | disposition home or self-care (01) ==
LOC: ATC 08:24
DX: M86.621 Other chronic osteomyelitis, right humerus (principal)
CPT/HCPCS: 96365; J0878

== ENCOUNTER 2025-08-05 01:46 | Day surgery (SDC) | payer OTHER ==
[~2025-08-05 01:46] MED LIST changes: -DAPTOmycin 1,000 MG in NS 50 ML IV SCH
[2025-08-05] MEDS ORDERED: DAPTOmycin 1,000 MG in NS 50 ML IV SCH (06:00)
[2025-08-05 15:00] VITALS: BP 144/76
== END 2025-08-05 15:22 | disposition home or self-care (01) ==
LOC: ATC 01:46
DX: M86.621 Other chronic osteomyelitis, right humerus (principal); Z79.1 Long term (current) use of non-steroidal anti-inflammatories (NSAID); Z79.2 Long term (current) use of antibiotics
CPT/HCPCS: 96365; J0878

== ENCOUNTER 2025-08-06 00:35 | Day surgery (SDC) | payer OTHER ==
[2025-08-06] MEDS ORDERED: DAPTOmycin 1,000 MG in NS 50 ML IV SCH (06:00)
[2025-08-06 15:02] VITALS: BP 130/78
== END 2025-08-06 15:23 | disposition home or self-care (01) ==
LOC: ATC 00:35
DX: M86.621 Other chronic osteomyelitis, right humerus (principal); Z79.1 Long term (current) use of non-steroidal anti-inflammatories (NSAID); Z79.2 Long term (current) use of antibiotics
CPT/HCPCS: 96365; J0878

== ENCOUNTER 2025-08-07 03:48 | Day surgery (SDC) | payer OTHER ==
[2025-08-07] MEDS ORDERED: DAPTOmycin 1,000 MG in NS 50 ML IV SCH (06:00)
[2025-08-07 15:11] VITALS: BP 130/79
== END 2025-08-07 15:33 | disposition home or self-care (01) ==
LOC: ATC 03:48
DX: M86.621 Other chronic osteomyelitis, right humerus (principal); Z79.1 Long term (current) use of non-steroidal anti-inflammatories (NSAID); Z79.2 Long term (current) use of antibiotics
CPT/HCPCS: 96365; J0878

== ENCOUNTER 2025-08-08 00:52 | Day surgery (SDC) | payer OTHER ==
[2025-08-08] MEDS ORDERED: DAPTOmycin 1,000 MG in NS 50 ML IV SCH (06:00)
[2025-08-08 15:57] VITALS: BP 139/73
== END 2025-08-08 16:31 | disposition home or self-care (01) ==
LOC: ATC 00:52
DX: M86.621 Other chronic osteomyelitis, right humerus (principal)
CPT/HCPCS: 96365; J0878

== ENCOUNTER 2025-08-09 02:41 | Day surgery (SDC) | payer OTHER ==
[2025-08-09] MEDS ORDERED: DAPTOmycin 1,000 MG in NS 50 ML IV SCH (06:00)
[2025-08-09 15:08] VITALS: BP 151/83
[2025-08-09 15:38] LABS: BASOPHILS ABSOLUTE AUTO 0.08 K/mm3 (0.00-0.23); BASOPHILS PERCENT AUTO 1 % (0-2); EOSINOPHILS ABSOLUTE AUTO 0.19 K/mm3 (0.00-0.68); EOSINOPHILS PERCENT AUTO 2 % (0-6); Hematocrit 34.7 % (37.0-53.0); Hemoglobin 10.0 g/dL (13.5-17.5); IMMATURE GRAN ABSOLUTE AUTO 0.03 K/mm3 (0.00-0.10); IMMATURE GRAN PERCENT AUTO 0 % (0-1); LYMPHOCYTES ABSOLUTE AUTO 3.25 K/mm3 (0.84-5.20); LYMPHOCYTES PERCENT AUTO 30 % (21-46); MONOCYTES ABSOLUTE AUTO 0.97 K/mm3 (0.16-1.47); MONOCYTES PERCENT AUTO 9 % (4-13); Mean Corpuscular HGB Conc 28.8 g/dL (31.5-36.5); Mean Corpuscular Volume 74 fL (80-100); NEUTROPHILS ABSOLUTE AUTO 6.46 K/mm3 (1.96-9.15); NEUTROPHILS PERCENT AUTO 59 % (41-73); NRBC ABSOLUTE 0.00 K/mm3 (0.00-0.02); NRBC Auto 0.0 /100 WBC (0.0-0.2); Platelet Count 338 K/mm3 (150-400); RDW Coefficient Variation 23.0 % (11.7-14.2); RDW Standard Deviation 59.3 fL (35.1-46.3)
[2025-08-09 16:04] LABS: C-REACTIVE PROTEIN, EXT RANGE 1.01 mg/dL (0.000-0.300)
[2025-08-09 16:06] LABS: Alanine Aminotransfer (ALT/SGP 25.0 U/L (12-78); Albumin, Blood 3.6 g/dL (3.4-5.0); Albumin/Globulin Ratio 0.9 (0.8-1.8); Anion Gap 8.0 mmol/L (3-11); Aspartate Aminotrans (AST/SGOT 14.0 U/L (12-37); Bilirubin, Total 0.3 mg/dL (0.1-1.0); Blood Urea Nitrogen 12.0 mg/dL (8-24); CO2, Blood 26.0 mmol/L (21-32); Calcium, Blood 8.9 mg/dL (8.5-10.1); Chloride, Blood 103.0 mmol/L (98-108); Creatinine, Blood 0.73 mg/dL (0.60-1.20); Globulin, Blood 4.0 g/dL (2.2-4.0); Glucose, Blood 109.0 mg/dL (70-99); Potassium, Blood 3.9 mmol/L (3.5-5.5); Sodium, Blood 133.0 mmol/L (136-145); Total Protein, Blood 7.6 g/dL (6.4-8.2)
--- NOTE | 2025-08-09 17:58 | NUR ---
Lab results from today faxed to Dr. Clark's office.
== END 2025-08-09 15:32 | disposition home or self-care (01) ==
LOC: ATC 02:41
PROVIDERS: Internal Medicine Infectious Disease
DX: M86.621 Other chronic osteomyelitis, right humerus (principal)
CPT/HCPCS: 80053; 82550; 85025; 86140; 96365; J0878

== ENCOUNTER 2025-08-10 07:40 | Day surgery (SDC) | payer OTHER ==
[2025-08-10 15:25] VITALS: BP 133/62
[2025-08-11] MEDS ORDERED: DAPTOmycin 1,000 MG in NS 50 ML IV SCH (06:00)
== END 2025-08-10 15:44 | disposition home or self-care (01) ==
LOC: ATC 07:40
DX: M86.621 Other chronic osteomyelitis, right humerus (principal); Z79.899 Other long term (current) drug therapy
CPT/HCPCS: 96365; J0878

== ENCOUNTER 2025-08-11 01:08 | Day surgery (SDC) | payer OTHER ==
[2025-08-11] MEDS ORDERED: DAPTOmycin 1,000 MG in NS 50 ML IV SCH (06:00)
[2025-08-11 15:24] VITALS: BP 142/74
== END 2025-08-11 15:45 | disposition home or self-care (01) ==
LOC: ATC 01:08
DX: M86.621 Other chronic osteomyelitis, right humerus (principal); Z79.899 Other long term (current) drug therapy
CPT/HCPCS: 96365; J0878